=== PATIENT | male | born 1960 | race Hispanic/Latino ===

== ENCOUNTER 2021-12-16 22:54 | Inpatient (IN) | payer OTHER ==
[2021-12-16] MEDS ORDERED: ROCURONIUM 50 MG/5 ML INJ IV ONE (23:01)
[2021-12-16] MEDS ORDERED: MINERAL OIL/PETROLATUM, WHITE OPHTH OINT 3.5 GM OU PRN (23:01)
[2021-12-16] MEDS ORDERED: TETANUS,DIPH,PERTUSS(ACELL) VACCINE 0.5 ML SYRINGE IM ONE (23:01)
[2021-12-16] MEDS ORDERED: ETOMIDATE 20 MG/10 ML INJ IV ONE (23:01)
[2021-12-16] MEDS ORDERED: LIP THERAPY VASELINE TP PRN (23:01)
[2021-12-16] MEDS ORDERED: LACTATED RINGERS 1,000 ML IV ONE (23:05)
--- NOTE | 2021-12-16 23:07 | Emergency Department Report ---
ED General Adult HPI - General Chief complaint: Altered Mental Status Stated complaint: Respiratory failure Time Seen by Provider: 12/16/21 23:01 Source: EMS (Verbal report received from emergency medical services. EMS documentation not available at time of chart dictation ), RN notes reviewed Mode of arrival: Stretcher Limitations: Altered Mental Status, Physical Limitation - History of Present Illness Initial comments: The patient is a 61-year-old gentleman. The details of his past medical history are not known to myself previously. History is obtained entirely from EMS. Patient presents to the department today with EMS, receiving [id number] ventilation. His exact last known well time is not known. As per EMS, normal Accu-Chek, tachycardia, otherwise unremarkable vital signs. EMS reports that the patient was found on the floor, breathing spontaneously, by a family member. He apparently fell multiple times recently. It is unknown as to the nature of his fall. Upon arrival, the patient has a GCS of 3, and is receiving [id number] ventilation. EMS reports the patient is moving 4 extremities spontaneously in the field. Decision made to intubate the patient using rapid sequence induction techniques, which C-spine immobilization. Please note that EMS did not provide C-spine immobilization in the field. Upon arrival to the ER, patient receiving assisted ventilation, and upon my immediate primary survey evaluation, we initiate spinal precautions. He received 20 mg of etomidate, and 100 mg of rocuronium. Using a curved s4 video laryngoscopic blade, a 7.5 endotracheal tube is easily inserted into the trachea, with 1 attempt, while using C-spine immobilization precautions. A cervical collar was then immediately placed. Breath sounds are appreciated bilaterally. He is tachycardic. He has appropriate pulses in the upper and lower extremities. He has a left arm abrasion, and a lower extremity abrasion. The remainder of his primary and secondary survey are unremarkable. Patient not accompanied by friends or family at this time for collateral information or additional information. The patient himself is obviously not able to describe the qualitative nature of symptoms, exacerbating factors No additional history is available at this time -: unknown - Related Data Allergies Allergy/AdvReac Type Severity Reaction Status Date / Time No Known Allergies Allergy Verified 12/16/21 23:10 ED Review of Systems ROS: Stated complaint: CARDIAC ARREST Other details as noted in HPI Comment: Unobtainable due to pts medical conditions ED Past Medical Hx - Surgical History Additional Surgical History: back surgery - Social History Smoking Status: Never Smoker Substance Use Type: None ED Physical Exam - General Limitations: Altered Mental Status, Physical Limitation General appearance: obtunded - Head Head exam: Present: atraumatic, normocephalic - Eye Eye exam: Present: other (Pupils are pinpoint) - ENT ENT exam: Present: normal exam, normal orophraynx, mucous membranes moist, normal external ear exam - Neck Neck exam: Present: normal inspection. Absent: tenderness, meningismus - Respiratory Respiratory exam: Present: respiratory distress - Cardiovascular Cardiovascular Exam: Present: normal rhythm, tachycardia, normal heart sounds. Absent: bradycardia, irregular rhythm, systolic murmur, diastolic murmur, rubs, gallop - GI/Abdominal GI/Abdominal exam: Present: soft. Absent: distended, tenderness, guarding, rebound, rigid, pulsatile mass - Rectal Rectal exam: Present: normal inspection, normal rectal tone - exam: Present: normal inspection External exam: Present: normal external exam - Extremities Exam Extremities exam: Present: other (2+ pulses noted in the bilateral upper and lower extremities. There is no palpable cord. negative Homans sign. Muscular compartments are soft. The pelvis is stable.). Absent: normal inspection (Left arm abrasion), calf tenderness - Back Exam Back exam: Present: normal inspection. Absent: tenderness, CVA tenderness (R), CVA tenderness (L), paraspinal tenderness, vertebral tenderness - Neurological Exam Neurological exam: Present: altered, other (GCS of 3. Nonverbal) - Psychiatric Psychiatric exam: Present: other (Patient is nonverbal) - Skin Skin exam: Present: warm, abrasion ED Course Vital Signs 12/16/21 12/17/21 23:14 00:17 Temperature 94.1 F L Pulse Rate 104 H Respiratory 0 L Rate Blood Pressure 96/66 O2 Sat by Pulse 100 Oximetry - Reevaluation(s) Reevaluation #1: 12/16/21 23:33 Differential diagnosis, including but not limited to: Closed head injury, cervical spine injury, pneumonia, UTI, toxic encephalopathy, metabolic encephalopathy, hypercarbia Assessment and plan: 61-year-old gentleman, presenting with alteration in mental status and acute respiratory failure, requiring intubation and mechanical ventilation. He is intubated with cervical spine precautions and immobilization techniques. A code trauma is called overhead. Belly soft. Chest x-ray reviewed and appreciated. Obtain CT scan of the brain, and cervical spine. Continue ventilatory support, IV fluids, administer tetanus vaccination, and provide supportive care. Contacted critical care physician on-call, Dr. Neo Marcos Presuming no findings are identified that would require transfer to higher level of care, plan is to admit this patient to our ICU for ventilatory support, and supportive care. She agrees with the plan of care, and will follow in consultation. Reassess after initial diagnostics have resulted. EKG abnormal, but not consistent with a STEMI. The EKG is transmitted to our nurse midwife, Dr. Cali Sue, who agrees that the EKG does not meet STEMI criteria 12/16/21 23:34 12/17/21 01:03 Dr Cali Thakur to admit to ICU Family members at the bedside. Explained clinical impression to family members, including urine toxicology screen, and suspicion for possible substance abuse and possible drug overdose. Family members became quite agitated, and verbally combative/abusive. I explained the results of the urine toxicology screen. I then excused myself from the conversation in an attempt to de-escalate the situation 12/17/21 01:05 - Intubation Time Out Performed: No (Emergency situation) Sedative: Etomidate Mg Given: 20 Paralytic: Rocuronium Mg Given: 100 Laryngoscope: fiberoptic video scope Size: 4 Assist Device Used: fiberoptic device ET Tube Size: 7.5 Tube Secured Depth (cm): 23 Tube Secured Location: teeth Tube Placement Confirmation: visualized tube passing t, equal breath sounds bilat, no breath sounds over epi, confirmation by capnometr Patient Tolerated Procedure: well Intubation Complications: none Additional Comments: Patient placed on nasal cannula 15 L/min. Received simultaneous qld-[id number]-idwa ventilation. Preoxygenated to 99/100%. Video laryngoscopy is performed, with a curved S4 video living scope blade, and a 7.5 endotracheal tube is gently inserted into the oropharynx, after appropriate suctioning. The tube is placed through the trachea without difficulty, stylette is removed, ship's pilot balloon is inflated, and end-tidal capno graphy confirmatory device is attached to the endotracheal tube, and there is appropriate end-tidal capnography color change. Condensation is noted on the tube, and there are appropriate breath sounds appreciated bilaterally. The patient tolerated the procedure well, without obvious complication ED Medical Decision Making - Lab Data Result diagrams: 12/16/21 23:16 12/16/21 23:16 Vital Signs 12/16/21 12/17/21 23:14 00:17 Temperature 94.1 F L Pulse Rate 104 H Respiratory 0 L Rate Blood Pressure 96/66 O2 Sat by Pulse 100 Oximetry Lab Results 12/16/21 12/16/21 12/16/21 Range/Units 23:16 23:16 23:16 WBC 9.4 (4.5-11.0) K/mm3 RBC 4.62 (3.65-5.03) M/mm3 Hgb 13.8 (11.8-15.2) gm/dl Hct 42.0 (35.5-45.6) % MCV 91 (84-94) fl MCH 30 (28-32) pg MCHC 33 (32-34) % RDW 16.3 H (13.2-15.2) % Plt Count 290 (140-440) K/mm3 Lymph % (Auto) 5.7 L (13.4-35.0) % [place] % (Auto) 7.1 (0.0-7.3) % Eos % (Auto) 0.2 (0.0-4.3) % Baso % (Auto) 0.4 (0.0-1.8) % Lymph # (Auto) 0.5 L (1.2-5.4) K/mm3 [place] # (Auto) 0.7 (0.0-0.8) K/mm3 Eos # (Auto) 0.0 (0.0-0.4) K/mm3 Baso # (Auto) 0.0 (0.0-0.1) K/mm3 Seg Neutrophils % 86.6 H (40.0-70.0) % Seg Neutrophils # 8.2 H (1.8-7.7) K/mm3 PT 12.9 (12.2-14.9) Sec. INR 0.86 L (0.87-1.13) APTT 24.3 (24.2-36.6) Sec. Sodium 140 (137-145) mmol/L Potassium 5.4 H (3.6-5.0) mmol/L Chloride 97.2 L (98-107) mmol/L Carbon Dioxide 30 (22-30) mmol/L Anion Gap 18 mmol/L BUN 29 H (9-20) mg/dL Creatinine 1.6 H (0.8-1.3) mg/dL Estimated GFR 44 ml/min BUN/Creatinine Ratio 18 % Glucose 186 H (75-100) mg/dL Calcium 9.4 (8.4-10.2) mg/dL Magnesium (1.7-2.3) mg/dL Total Bilirubin 0.20 (0.1-1.2) mg/dL AST 31 (5-40) units/L ALT 37 (7-56) units/L Alkaline Phosphatase 77 (35-129) units/L Total Creatine Kinase 141 (55-170) units/L Troponin T 0.020 (0.00-0.029) ng/mL Total Protein 6.5 (6.3-8.2) g/dL Albumin 4.2 (3.9-5) g/dL Albumin/Globulin Ratio 1.8 % TSH (0.270-4.200) mlU/mL Urine Color (Yellow) Urine Turbidity (Clear) Urine pH (5.0-7.0) Ur Specific [place] (1.003-1.030) Urine Protein (Negative) mg/dL Urine Glucose (UA) (Negative) mg/dL Urine Ketones (Negative) mg/dL Urine Blood (Negative) Urine Nitrite (Negative) Urine Bilirubin (Negative) Urine Urobilinogen (<2.0) mg/dL Ur Leukocyte Esterase (Negative) Urine WBC (Auto) (0.0-6.0) /HPF Urine RBC (Auto) (0.0-6.0) /HPF Hyaline Casts /LPF Granular Casts /LPF Urine Mucus /HPF Urine Sperm (DELIVERY TABLE FEEDER) /HPF Salicylates (2.8-20.0) mg/dL Urine Opiates Screen Urine Methadone Screen Acetaminophen (10.0-30.0) ug/mL Ur Barbiturates Screen Ur Phencyclidine Scrn Ur Amphetamines Screen U Benzodiazepines Scrn Urine Cocaine Screen U Marijuana (THC) Screen Plasma/Serum Alcohol (0-0.07) % 12/16/21 12/16/21 12/16/21 Range/Units 23:16 23:16 23:16 WBC (4.5-11.0) K/mm3 RBC (3.65-5.03) M/mm3 Hgb (11.8-15.2) gm/dl Hct (35.5-45.6) % MCV (84-94) fl MCH (28-32) pg MCHC (32-34) % RDW (13.2-15.2) % Plt Count (140-440) K/mm3 Lymph % (Auto) (13.4-35.0) % [place] % (Auto) (0.0-7.3) % Eos % (Auto) (0.0-4.3) % Baso % (Auto) (0.0-1.8) % Lymph # (Auto) (1.2-5.4) K/mm3 [place] # (Auto) (0.0-0.8) K/mm3 Eos # (Auto) (0.0-0.4) K/mm3 Baso # (Auto) (0.0-0.1) K/mm3 Seg Neutrophils % (40.0-70.0) % Seg Neutrophils # (1.8-7.7) K/mm3 PT (12.2-14.9) Sec. INR (0.87-1.13) APTT (24.2-36.6) Sec. Sodium (137-145) mmol/L Potassium (3.6-5.0) mmol/L Chloride (98-107) mmol/L Carbon Dioxide (22-30) mmol/L Anion Gap mmol/L BUN (9-20) mg/dL Creatinine (0.8-1.3) mg/dL Estimated GFR ml/min BUN/Creatinine Ratio % Glucose (75-100) mg/dL Calcium (8.4-10.2) mg/dL Magnesium 2.30 (1.7-2.3) mg/dL Total Bilirubin (0.1-1.2) mg/dL AST (5-40) units/L ALT (7-56) units/L Alkaline Phosphatase (35-129) units/L Total Creatine Kinase (55-170) units/L Troponin T (0.00-0.029) ng/mL Total Protein (6.3-8.2) g/dL Albumin (3.9-5) g/dL Albumin/Globulin Ratio % TSH 4.480 H (0.270-4.200) mlU/mL Urine Color (Yellow) Urine Turbidity (Clear) Urine pH (5.0-7.0) Ur Specific [place] (1.003-1.030) Urine Protein (Negative) mg/dL Urine Glucose (UA) (Negative) mg/dL Urine Ketones (Negative) mg/dL Urine Blood (Negative) Urine Nitrite (Negative) Urine Bilirubin (Negative) Urine Urobilinogen (<2.0) mg/dL Ur Leukocyte Esterase (Negative) Urine WBC (Auto) (0.0-6.0) /HPF Urine RBC (Auto) (0.0-6.0) /HPF Hyaline Casts /LPF Granular Casts /LPF Urine Mucus /HPF Urine Sperm (DELIVERY TABLE FEEDER) /HPF Salicylates (2.8-20.0) mg/dL Urine Opiates Screen Urine Methadone Screen Acetaminophen (10.0-30.0) ug/mL Ur Barbiturates Screen Ur Phencyclidine Scrn Ur Amphetamines Screen U Benzodiazepines Scrn Urine Cocaine Screen U Marijuana (THC) Screen Plasma/Serum Alcohol < 0.01 (0-0.07) % 12/16/21 12/16/21 12/16/21 Range/Units 23:16 23:16 23:29 WBC (4.5-11.0) K/mm3 RBC (3.65-5.03) M/mm3 Hgb (11.8-15.2) gm/dl Hct (35.5-45.6) % MCV (84-94) fl MCH (28-32) pg MCHC (32-34) % RDW (13.2-15.2) % Plt Count (140-440) K/mm3 Lymph % (Auto) (13.4-35.0) % [place] % (Auto) (0.0-7.3) % Eos % (Auto) (0.0-4.3) % Baso % (Auto) (0.0-1.8) % Lymph # (Auto) (1.2-5.4) K/mm3 [place] # (Auto) (0.0-0.8) K/mm3 Eos # (Auto) (0.0-0.4) K/mm3 Baso # (Auto) (0.0-0.1) K/mm3 Seg Neutrophils % (40.0-70.0) % Seg Neutrophils # (1.8-7.7) K/mm3 PT (12.2-14.9) Sec. INR (0.87-1.13) APTT (24.2-36.6) Sec. Sodium (137-145) mmol/L Potassium (3.6-5.0) mmol/L Chloride (98-107) mmol/L Carbon Dioxide (22-30) mmol/L Anion Gap mmol/L BUN (9-20) mg/dL Creatinine (0.8-1.3) mg/dL Estimated GFR ml/min BUN/Creatinine Ratio % Glucose (75-100) mg/dL Calcium (8.4-10.2) mg/dL Magnesium (1.7-2.3) mg/dL Total Bilirubin (0.1-1.2) mg/dL AST (5-40) units/L ALT (7-56) units/L Alkaline Phosphatase (35-129) units/L Total Creatine Kinase (55-170) units/L Troponin T (0.00-0.029) ng/mL Total Protein (6.3-8.2) g/dL Albumin (3.9-5) g/dL Albumin/Globulin Ratio % TSH (0.270-4.200) mlU/mL Urine Color Yellow (Yellow) Urine Turbidity Slightly-cloudy (Clear) Urine pH 5.0 (5.0-7.0) Ur Specific [place] 1.018 (1.003-1.030) Urine Protein 100 mg/dl (Negative) mg/dL Urine Glucose (UA) Neg (Negative) mg/dL Urine Ketones Neg (Negative) mg/dL Urine Blood Neg (Negative) Urine Nitrite Neg (Negative) Urine Bilirubin Neg (Negative) Urine Urobilinogen < 2 (<2.0) mg/dL Ur Leukocyte Esterase Neg (Negative) Urine WBC (Auto) 4.0 (0.0-6.0) /HPF Urine RBC (Auto) 2.0 (0.0-6.0) /HPF Hyaline Casts 67 /LPF Granular Casts 9 /LPF Urine Mucus 1+ /HPF Urine Sperm 1+ (DELIVERY TABLE FEEDER) /HPF Salicylates < 0.3 L (2.8-20.0) mg/dL Urine Opiates Screen Urine Methadone Screen Acetaminophen 5.0 L (10.0-30.0) ug/mL Ur Barbiturates Screen Ur Phencyclidine Scrn Ur Amphetamines Screen U Benzodiazepines Scrn Urine Cocaine Screen U Marijuana (THC) Screen Plasma/Serum Alcohol (0-0.07) % 12/16/21 Range/Units 23:29 WBC (4.5-11.0) K/mm3 RBC (3.65-5.03) M/mm3 Hgb (11.8-15.2) gm/dl Hct (35.5-45.6) % MCV (84-94) fl MCH (28-32) pg MCHC (32-34) % RDW (13.2-15.2) % Plt Count (140-440) K/mm3 Lymph % (Auto) (13.4-35.0) % [place] % (Auto) (0.0-7.3) % Eos % (Auto) (0.0-4.3) % Baso % (Auto) (0.0-1.8) % Lymph # (Auto) (1.2-5.4) K/mm3 [place] # (Auto) (0.0-0.8) K/mm3 Eos # (Auto) (0.0-0.4) K/mm3 Baso # (Auto) (0.0-0.1) K/mm3 Seg Neutrophils % (40.0-70.0) % Seg Neutrophils # (1.8-7.7) K/mm3 PT (12.2-14.9) Sec. INR (0.87-1.13) APTT (24.2-36.6) Sec. Sodium (137-145) mmol/L Potassium (3.6-5.0) mmol/L Chloride (98-107) mmol/L Carbon Dioxide (22-30) mmol/L Anion Gap mmol/L BUN (9-20) mg/dL Creatinine (0.8-1.3) mg/dL Estimated GFR ml/min BUN/Creatinine Ratio % Glucose (75-100) mg/dL Calcium (8.4-10.2) mg/dL Magnesium (1.7-2.3) mg/dL Total Bilirubin (0.1-1.2) mg/dL AST (5-40) units/L ALT (7-56) units/L Alkaline Phosphatase (35-129) units/L Total Creatine Kinase (55-170) units/L Troponin T (0.00-0.029) ng/mL Total Protein (6.3-8.2) g/dL Albumin (3.9-5) g/dL Albumin/Globulin Ratio % TSH (0.270-4.200) mlU/mL Urine Color (Yellow) Urine Turbidity (Clear) Urine pH (5.0-7.0) Ur Specific [place] (1.003-1.030) Urine Protein (Negative) mg/dL Urine Glucose (UA) (Negative) mg/dL Urine Ketones (Negative) mg/dL Urine Blood (Negative) Urine Nitrite (Negative) Urine Bilirubin (Negative) Urine Urobilinogen (<2.0) mg/dL Ur Leukocyte Esterase (Negative) Urine WBC (Auto) (0.0-6.0) /HPF Urine RBC (Auto) (0.0-6.0) /HPF Hyaline Casts /LPF Granular Casts /LPF Urine Mucus /HPF Urine Sperm (DELIVERY TABLE FEEDER) /HPF Salicylates (2.8-20.0) mg/dL Urine Opiates Screen Presumptive negative Urine Methadone Screen Presumptive negative Acetaminophen (10.0-30.0) ug/mL Ur Barbiturates Screen Presumptive negative Ur Phencyclidine Scrn Presumptive negative Ur Amphetamines Screen Presumptive positive U Benzodiazepines Scrn Presumptive positive Urine Cocaine Screen Presumptive negative U Marijuana (THC) Screen Presumptive negative Plasma/Serum Alcohol (0-0.07) % - EKG Data -: EKG Interpreted by Hi Rate: tachycardia - EKG Data 12/16/21 23:32 The EKG is interpreted at 23: 14. Sinus rhythm, tachycardia, rate 108 bpm. Borderline leftward axis deviation, normal P wave axis, right bundle branch block, left ventricular hypertrophy. QTC is 4 8 7 ms. This is an abnormal EKG. This is not a STEMI. This EKG is also transmitted to our nurse midwife, Dr. Cali Sue, who agrees and further advises that this EKG does not meet STEMI criteria - Radiology Data Radiology results: pending, report reviewed, image reviewed CHEST 1 VIEW 12/16/2021 11:09 PM INDICATION / CLINICAL INFORMATION: ETT placement. COMPARISON: 09/14/2013 FINDINGS: SUPPORT DEVICES: Satisfactory endotracheal tube position just above the itz. HEART / MEDIASTINUM: No signi ficant abnormality. LUNGS / PLEURA: Left basilar consolidation with mild volume loss representing either pneumonia or atelectasis. No significant pleural effusion. No pneumothorax. ADDITIONAL FINDINGS: None IMPRESSION: 1. Satisfactory endotracheal tube position. 2. Left basilar consolidation repre senting either pneumonia or atelectasis. Signer Name: Pascual Rees MD Signed: 12/16/2021 10:38 PM Workstation Name: [employer] PELVIS 2 VIEW(S) INDICATION / CLINICAL INFORMATION: Trauma COMPARISON: None available. FINDINGS: BONES / JOINT(S): No acute fracture or subluxation. No significant arthritis. SOFT TISSUES: No significant abnormality. ADDITIONAL FINDINGS: None. IMPRESSION: 1. No acute findings. Signer Name: Pascual Rees MD Signed: 12/16/2021 10:37 PM Workstation Name: [facility] CT CERVICAL SPINE WITHOUT CONTRAST INDICATION / CLINICAL INFORMATION: Trauma. TECHNIQUE: Axial CT images were obtained through the cervical spine. Sagittal and coronal reformatted images were produced. All CT scans at this location are performed using CT dose reduction for ALARA by means of automated exposure control. COMPARISON: None available. FINDINGS: VERTEBRAE/ALIGNMENT: Normal vertebral body height and alignment without acute fracture or posttraumatic subluxation. CRANIOCERVICAL JUNCTION:No significant abnormality. DISC SPACES/FACETS: Mild multilevel cervical degenerative spondylosis. This most notably involves the C6-C7 level with disc height loss and lower cervical marginal osteophytes. Multilevel moderate/severe left greater than right hypertrophic facet arthropathy. SPINAL CANAL: No evidence for significant spinal stenosis within limitations of noncontrast CT technique. PARASPINAL SOFT TISSUES: No significant abnormality. LUNG APICES/ADDITIONAL FINDINGS: Satisfacto ry endotracheal tube position. Mild emphysema. Chronic healed right posterior first rib fracture. IMPRESSION: 1. No fracture or other acute process. 2. Multilevel moderate/severe hypertrophic facet arthropathy and otherwise mild cervical degenerative spondylosis. Signer Name: Pascual Rees MD Signed: 12/16/2021 11:34 PM Workstation Name: [employer] CT HEAD WITHOUT CONTRAST INDICATION / CLINICAL INFORMATION: Trauma. TECHNIQUE: All CT scans at this location are performed using CT dose reduction for ALARA by means of automated exposure control. COMPARISON: None available. FINDINGS: CEREBRAL/CEREBELLAR PARENCHYMA: The cerebral and cerebellar hemispheres are normal for age. No CT evidence for an acute or subacute territorial infarct. HEMORRHAGE: No acute intra-axial hemorrhage or extra-axial fluid collection. MASS: No mass or mass effect. VENTRICULAR SYSTEM: Normal in size and morphology for the patient's age. ORBITS: No acute process. SOFT TISSUES/SKULL: No scalp hematoma or skull fracture. PARANASAL SINUSES/MASTOID AIR CELLS: Normal as visualized. IMPRESSION: 1. No acute intracranial process. Signer Name: Pascual Rees MD Signed: 12/16/2021 11:31 PM Workstation Name: [facility] Critical Care Time: Yes Critical care time in (mins) excluding proc time.: 45 Critical care attestation.: If time is entered above; I have spent that time in minutes in the direct care of this critically ill patient, excluding procedure time. ED Disposition Clinical Impression: Acute respiratory failure, Acute encephalopathy, Hypothermia, Dehydration Disposition: ADMITTED INPATIENT Is pt being admited?: Yes Does the pt Need Aspirin: No Condition: Critical
[2021-12-16] MEDS ORDERED: SODIUM CHLORIDE 0.9% 1000 ML 1,000 ML IV ONE (23:20)
[2021-12-16 23:37] LABS: Bilirubin,Urine NEG (Negative); Blood,Urine NEG (Negative); Color,Urine Yellow (Yellow); Urobilinogen,Urine < 2 mg/dL (<2.0)
[2021-12-16 23:39] LABS: Basophils % (Auto) 0.4 % (0.0-1.8); Eosinophils % (Auto) 0.2 % (0.0-4.3); Hemoglobin 13.8 gm/dl (11.8-15.2); Lymphocytes # (Auto) 0.5 K/mm3 (1.2-5.4); Lymphocytes % (Auto) 5.7 % (13.4-35.0); Mean Corpuscular HGB Conc 33 % (32-34); Mean Corpuscular Volume 91 fl (84-94); Monocytes # (Auto) 0.7 K/mm3 (0.0-0.8); Monocytes % (Auto) 7.1 % (0.0-7.3); Platelet Count 290 K/mm3 (140-440); Red Blood Count 4.62 M/mm3 (3.65-5.03); Red Cell Distribution Width 16.3 % (13.2-15.2)
--- NOTE | 2021-12-16 23:41 | XRay Report ---
PELVIS 2 VIEW(S) INDICATION / CLINICAL INFORMATION: Trauma COMPARISON: None available. FINDINGS: BONES / JOINT(S): No acute fracture or subluxation. No significant arthritis. SOFT TISSUES: No significant abnormality. ADDITIONAL FINDINGS: None. IMPRESSION: 1. No acute findings. Signer Name: Pascual Rees MD Signed: 12/16/2021 11:37 PM Workstation Name: [email or web address]
--- NOTE | 2021-12-16 23:43 | XRay Report ---
CHEST 1 VIEW 12/16/2021 11:09 PM INDICATION / CLINICAL INFORMATION: ETT placement. COMPARISON: 09/14/2013 FINDINGS: SUPPORT DEVICES: Satisfactory endotracheal tube position just above the itz. HEART / MEDIASTINUM: No significant abnormality. LUNGS / PLEURA: Left basilar consolidation with mild volume loss representing either pneumonia or ate lectasis. No significant pleural effusion. No pneumothorax. ADDITIONAL FINDINGS: None IMPRESSION: 1. Satisfactory endotracheal tube position. 2. Left basilar consolidation representing either pneumonia or atelectasis. Signer Name: Pascual Rees MD Signed: 12/16/2021 11:38 PM Workstation Name: [email or web address]
[2021-12-16 23:46] LABS: Amphetamine Screen,Urine PRESUMPTIVE POSITIVE; Benzodiazepines Screen,Urine PRESUMPTIVE POSITIVE; Cannabinoid Screen,Urine PRESUMPTIVE NEGATIVE; Cocaine Screen,Urine PRESUMPTIVE NEGATIVE; Granular Casts,Urine 9 /LPF; Hyaline Casts,Urine 67 /LPF; Methadone Screen,Urine PRESUMPTIVE NEGATIVE; Mucus,Urine 1+ /HPF; Opiate Screen,Urine PRESUMPTIVE NEGATIVE; Sperm,Urine 1+ /HPF (NP)
[2021-12-16] MEDS ORDERED: cefTRIAXone/NS 1 GM/50 ML 1 GM/50 ML BAG IV ONE (23:51)
[2021-12-16] MEDS ORDERED: AZITHROMYCIN/NS 500 MG/250 ML 500 MG/250 ML BAG IV ONE (23:51)
[2021-12-16 23:53] LABS: INR 0.86 (0.87-1.13)
[2021-12-16 23:54] LABS: Partial Thromboplastin Time 24.3 Sec. (24.2-36.6)
[2021-12-16 23:55] LABS: Albumin 4.2 g/dL (3.9-5); Calcium 9.4 mg/dL (8.4-10.2)
[2021-12-17] MEDS ORDERED: SODIUM CHLORIDE 0.9% 1000 ML 2,000 ML IV ONE (00:17)
[2021-12-17] MEDS: fentaNYL DRIP Premix 1,000 MCG/100 ML BAG IV SCH ×6 (00:30→22:04)
--- NOTE | 2021-12-17 00:35 | Cat Scan Report ---
CT HEAD WITHOUT CONTRAST INDICATION / CLINICAL INFORMATION: Trauma. TECHNIQUE: All CT scans at this location are performed using CT dose reduction for [place] by means of automated exposure control. COMPARISON: None available. FINDINGS: CEREBRAL/CEREBELLAR PARENCHYMA: The cerebral and cerebellar hemispheres are normal for age. No CT billy dence for an acute or subacute territorial infarct. HEMORRHAGE: No acute intra-axial hemorrhage or extra-axial fluid collection. MASS: No mass or mass effect. VENTRICULAR SYSTEM: Normal in size and morphology for the patient's age. ORBITS: No acute process. SOFT TISSUES/SKULL: No scalp hematoma or skull fracture. PARANASAL SINUSES/MASTOID AIR CELLS: Normal as visualized. IMPRESSION: 1. No acute intracranial process. Signer Name: Pascual Rees MD Signed: 12/17/2021 12:31 AM Workstation Name: [email or web address]
--- NOTE | 2021-12-17 00:38 | Cat Scan Report ---
CT CERVICAL SPINE WITHOUT CONTRAST INDICATION / CLINICAL INFORMATION: Trauma. TECHNIQUE: Axial CT images were obtained through the cervical spine. Sagittal and coronal reformatted images were produced. All CT scans at this location are performed using CT dose reduction for [place] by means of automated exposure control. COMPARISON: None available. FINDINGS: VERTEBRAE/ALIGNMENT: Normal vertebral body height and alignment without acute fracture or posttraumat ic subluxation. CRANIOCERVICAL JUNCTION:No significant abnormality. DISC SPACES/FACETS: Mild multilevel cervical degenerative spondylosis. This most notably involves the C6-C7 level with disc height loss and lower cervical marginal osteophytes. Multilevel moderate/sever e left greater than right hypertrophic facet arthropathy. SPINAL CANAL: No evidence for significant spinal stenosis within limitations of noncontrast CT techni que. PARASPINAL SOFT TISSUES: No significant abnormality. LUNG APICES/ADDITIONAL FINDINGS: Satisfactory endotracheal tube position. Mild emphysema. Chronic hea led right posterior first rib fracture. IMPRESSION: 1. No fracture or other acute process. 2. Multilevel moderate/severe hypertrophic facet arthropathy and otherwise mild cervical degenerative spondylosis. Signer Name: Pascual Rees MD Signed: 12/17/2021 12:34 AM Workstation Name: [employer]
[2021-12-17] MEDS: MIDAZOLAM IV SCH ×2 (00:55→04:23)
[2021-12-17] MEDS: [UNRECOGNIZED DRUG - OTHER] IV SCH ×2 (00:55→04:23)
[2021-12-17] MEDS ORDERED: NALOXONE 0.4 MG/1 ML INJ IV PRN (01:03)
[2021-12-17] MEDS ORDERED: ACETAMINOPHEN 325 MG TAB PO PRN (01:17)
[2021-12-17 01:31] LABS: ABG Base Excess 2.8 mmol/L (-2.0-3.0); ABG HCO3 29.8 mmol/L (20.0-26.0); ABG Methemoglobin 0.5 % (0.0-1.5); ABG Oxygen Saturation 99.2 % (95.0-99.0); ABG PCO2 57.6 mm Hg; ABG PH 7.332 pH Units (7.350-7.450); ABG PO2 195.4 mm Hg (80.0-90.0)
[2021-12-17] MEDS ORDERED: cefTRIAXone/NS 1 GM/50 ML 1 GM/50 ML BAG IV ONE (02:45)
[2021-12-17] MEDS ORDERED: ACETAMINOPHEN 650 MG RECT SUPP PR PRN (02:56)
[2021-12-17] MEDS ORDERED: MORPHINE 4 MG/1 ML INJ IV PRN (02:56)
[2021-12-17] MEDS ORDERED: MORPHINE 2 MG/1 ML INJ IV PRN (02:56)
--- NOTE | 2021-12-17 03:11 | History and Physical Report ---
History of Present Illness Date of examination: 12/17/21 Date of admission: 12/17/21 01:17 Chief complaint: Altered mental status History of present illness: 61-year-old male brought into the emergency room via EMS for evaluation after being found on the floor by family members at home. Was said to have had multiple falls lately. He was brought into the emergency room receiving bag valve mask ventilation. He was subsequently intubated in the emergency room. More history was provided by who was by the bedside. She indicates that she found patient on the floor unresponsive. Work-up in the emergency room, labs shows kalemia 5.4. BUN of 29 creatinine of 1.6 UDS was significant for amphetamine and benzodiazepine. Chest x-ray shows left basilar consolidation representing either pneumonia or actually. Pelvic x-ray, cervical spine x-ray head showed no acute findings. Patient being admitted with acute respiratory failure, acute encephalopathy and dehydration. Medications and Allergies Allergies Allergy/AdvReac Type Severity Reaction Status Date / Time No Known Allergies Allergy Verified 12/16/21 23:10 Active Meds: Active Medications Acetaminophen (Acetaminophen 325 Mg Tab) 650 mg PO Q6H PRN PRN Reason: Pain MILD(1-3)/Fever >100.5/KRUEGER Acetaminophen (Acetaminophen 650 Mg Rect Supp) 650 mg ID Q6H PRN PRN Reason: Pain MILD(1-3)/Fever >100.5/KRUEGER Famotidine (Famotidine 20 Mg/2 Ml Inj) 20 mg IV BID SHILA Hydrophilic Ointment (Lip Therapy Vaseline) 1 applic TP Q2HR PRN PRN Reason: Dry Lips Fentanyl Citrate (Fentanyl Drip Premix) 1,000 mcg in 100 mls @ 2.5 mls/hr IV TITR SHILA; Protocol Midazolam HCl (Midazolam/Ns Drip 50mg/50ml) 50 mg in 50 mls @ 1 mls/hr IV TITR SHILA; Protocol Ceftriaxone Sodium (Rocephin/Ns 1 Gm/50 Ml) 1 gm in 50 mls @ 100 mls/hr IV ONCE ONE; Protocol Stop: 12/17/21 03:14 Sodium Chloride (Nacl 0.9% 1000 Ml) 1,000 mls @ 125 mls/hr IV DIRECT SHILA Ceftriaxone Sodium (Rocephin/Ns 2 Gm/100 Ml) 2 gm in 100 mls @ 200 mls/hr IV Q24H SHILA; Protocol Azithromycin (Zithromax/Ns) 500 mg in 250 mls @ 250 mls/hr IV Q24H SHILA; Protocol Morphine Sulfate (Morphine 2 Mg/1 Ml Inj) 2 mg IV Q4H PRN PRN Reason: Pain, Moderate (4-6) Morphine Sulfate (Morphine 4 Mg/1 Ml Inj) 4 mg IV Q4H PRN PRN Reason: Pain , Severe (7-10) Multi-Ingred Cream/Lotion/Oil/Oint (Mineral Oil/Petrolatum, White Ophth Oint 3.5 Gm) 1 applic OU Q4HR PRN PRN Reason: Dry Eye(s) Naloxone HCl (Naloxone 0.4 Mg/1 Ml Inj) 0.1 mg IV Q2MIN PRN PRN Reason: Res Rate </= 8 or 02 SAT < 92% Senna/Docusate Sodium (Sennosides/Docusate Sodium 8.6/50 Mg Tab) 1 tab FEEDTUBE BID SHILA Sodium Chloride (Sodium Chloride 0.9% 10 Ml Flush Syringe) 10 ml IV BID SHILA Sodium Chloride (Sodium Chloride 0.9% 10 Ml Flush Syringe) 10 ml IV PRN PRN PRN Reason: LINE FLUSH Sodium Chloride (Sodium Chloride 0.9% 10 Ml Flush Syringe) 10 ml IV BID SHILA Sodium Chloride (Sodium Chloride 0.9% 10 Ml Flush Syringe) 10 ml IV PRN PRN PRN Reason: LINE FLUSH Exam - Constitutional Vitals: Temp Pulse Resp BP Pulse Ox 94.1 F L 104 H 0 L 96/66 100 12/17/21 00:17 12/16/21 23:14 12/16/21 23:14 12/16/21 23:14 12/16/21 23:14 HEART Score - HEART Score Troponin: Troponin T 0.020 ng/mL (0.00-0.029) 12/16/21 23:16 Results - Labs CBC & Chem 7: 12/16/21 23:16 12/16/21 23:16 Labs: Abnormal lab results 12/16/21 12/16/21 12/16/21 Range/Units 23:16 23:16 23:16 RDW 16.3 H (13.2-15.2) % Lymph % (Auto) 5.7 L (13.4-35.0) % Lymph # (Auto) 0.5 L (1.2-5.4) K/mm3 Seg Neutrophils % 86.6 H (40.0-70.0) % Seg Neutrophils # 8.2 H (1.8-7.7) K/mm3 INR 0.86 L (0.87-1.13) ABG pH (7.350-7.450) pH Units ABG pO2 (80.0-90.0) mm Hg ABG HCO3 (20.0-26.0) mmol/L ABG O2 Saturation (95.0-99.0) % ABG Hemoglobin (14.0-18.0) gm/dl Potassium 5.4 H (3.6-5.0) mmol/L Chloride 97.2 L (98-107) mmol/L BUN 29 H (9-20) mg/dL Creatinine 1.6 H (0.8-1.3) mg/dL Glucose 186 H (75-100) mg/dL TSH (0.270-4.200) mlU/mL Salicylates (2.8-20.0) mg/dL Acetaminophen (10.0-30.0) ug/mL 12/16/21 12/16/21 12/16/21 Range/Units 23:16 23:16 23:16 RDW (13.2-15.2) % Lymph % (Auto) (13.4-35.0) % Lymph # (Auto) (1.2-5.4) K/mm3 Seg Neutrophils % (40.0-70.0) % Seg Neutrophils # (1.8-7.7) K/mm3 INR (0.87-1.13) ABG pH (7.350-7.450) pH Units ABG pO2 (80.0-90.0) mm Hg ABG HCO3 (20.0-26.0) mmol/L ABG O2 Saturation (95.0-99.0) % ABG Hemoglobin (14.0-18.0) gm/dl Potassium (3.6-5.0) mmol/L Chloride (98-107) mmol/L BUN (9-20) mg/dL Creatinine (0.8-1.3) mg/dL Glucose (75-100) mg/dL TSH 4.480 H (0.270-4.200) mlU/mL Salicylates < 0.3 L (2.8-20.0) mg/dL Acetaminophen 5.0 L (10.0-30.0) ug/mL 12/17/21 Range/Units 01:25 RDW (13.2-15.2) % Lymph % (Auto) (13.4-35.0) % Lymph # (Auto) (1.2-5.4) K/mm3 Seg Neutrophils % (40.0-70.0) % Seg Neutrophils # (1.8-7.7) K/mm3 INR (0.87-1.13) ABG pH 7.332 L (7.350-7.450) pH Units ABG pO2 195.4 H (80.0-90.0) mm Hg ABG HCO3 29.8 H (20.0-26.0) mmol/L ABG O2 Saturation 99.2 H (95.0-99.0) % ABG Hemoglobin 11.6 L (14.0-18.0) gm/dl Potassium (3.6-5.0) mmol/L Chloride (98-107) mmol/L BUN (9-20) mg/dL Creatinine (0.8-1.3) mg/dL Glucose (75-100) mg/dL TSH (0.270-4.200) mlU/mL Salicylates (2.8-20.0) mg/dL Acetaminophen (10.0-30.0) ug/mL Assessment and Plan Assessment: 1. Acute respiratory failurepossibly secondary to pneumonia 2. Acute encephalopathy 3. Dehydration 4. Hyperkalemia Plan: 1. Patient admitted and placed on empiric IV antibiotics. 2. We will await further evaluation and recommendations wheel buffer. 3. Patient placed on IV fluid. We will monitor chemistry. DVT prophylaxis: Subcutaneous heparin CODE STATUS: Full code
[2021-12-17] MEDS: SODIUM CHLORIDE 0.9% 1000 ML 1,000 ML IV SCH ×2 (06:00→17:04)
[2021-12-17] MEDS: HEPARIN 5,000 UNIT/1 ML VIAL SUB-Q SCH ×2 (09:11→21:50)
[2021-12-17] MEDS: FAMOTIDINE 20 MG/2 ML INJ IV SCH ×2 (09:11→21:50)
--- NOTE | 2021-12-17 09:34 | Consultation ---
History of Present Illness Consult date: 12/17/21 Requesting physician: MARILU WEN History of present illness: 61-year-old male brought into the emergency room via EMS for evaluation after being found on the floor by family members at home. Was said to have had multiple falls lately.He was brought into the emergency room receiving bag valve mask ventilation. He was subsequently intubated in the emergency room. More history was provided by who was by the bedside. She indicates that she found patient on the floor unresponsive. Work-up in the emergency room, labs shows kalemia 5.4. BUN of 29 creatinine of 1.6 UDS was significant for amphetamine and benzodiazepine. Chest x-ray shows left basilar consolidation representing either pneumonia Pelvic x-ray, cervical spine x-ray head showed no acute findings. Patient being admitted with acute respiratory failure, acute encephalopathy and dehydration. Critical care consult placed. Patient seen and examined. Orally intubated, on Midazolam and Fentanyl infusion, Warren in place. Medications and Allergies Allergies Allergy/AdvReac Type Severity Reaction Status Date / Time No Known Allergies Allergy Verified 12/16/21 23:10 Active Meds: Active Medications Acetaminophen (Acetaminophen 650 Mg Rect Supp) 650 mg CO Q6H PRN PRN Reason: Pain MILD(1-3)/Fever >100.5/KRUEGER Famotidine (Famotidine 20 Mg/2 Ml Inj) 20 mg IV BID SHILA Last Admin: 12/17/21 09:11 Dose: 20 mg Heparin Sodium (Porcine) (Heparin 5,000 Unit/1 Ml Vial) 5,000 unit SUB-Q Q12HR SHILA Last Admin: 12/17/21 09:11 Dose: 5,000 unit Hydrophilic Ointment (Lip Therapy Vaseline) 1 applic TP Q2HR PRN PRN Reason: Dry Lips Fentanyl Citrate (Fentanyl Drip Premix) 1,000 mcg in 100 mls @ 2.5 mls/hr IV TITR SHILA; Protocol Last Admin: 12/17/21 09:10 Dose: 150 mcg/hr, 15 mls/hr Midazolam HCl (Midazolam/Ns Drip 50mg/50ml) 50 mg in 50 mls @ 1 mls/hr IV TITR SHILA; Protocol Last Titration: 12/17/21 08:16 Dose: 0 mg/hr, 0 mls/hr Sodium Chloride (Nacl 0.9% 1000 Ml) 1,000 mls @ 125 mls/hr IV DIRECT SHILA Last Admin: 12/17/21 06:00 Dose: 125 mls/hr Ceftriaxone Sodium (Rocephin/Ns 2 Gm/100 Ml) 2 gm in 100 mls @ 200 mls/hr IV Q24H SHILA; Protocol Azithromycin (Zithromax/Ns) 500 mg in 250 mls @ 250 mls/hr IV Q24H SHILA; Protocol Multi-Ingred Cream/Lotion/Oil/Oint (Mineral Oil/Petrolatum, White Ophth Oint 3.5 Gm) 1 applic OU Q4HR PRN PRN Reason: Dry Eye(s) Naloxone HCl (Naloxone 0.4 Mg/1 Ml Inj) 0.1 mg IV Q2MIN PRN PRN Reason: Res Rate </= 8 or 02 SAT < 92% Senna/Docusate Sodium (Sennosides/Docusate Sodium 8.6/50 Mg Tab) 1 tab FEEDTUBE BID SHILA Sodium Chloride (Sodium Chloride 0.9% 10 Ml Flush Syringe) 10 ml IV BID [facility] Last Admin: 12/17/21 09:13 Dose: 10 ml Sodium Chloride (Sodium Chloride 0.9% 10 Ml Flush Syringe) 10 ml IV PRN PRN PRN Reason: LINE FLUSH Review of Systems ROS unobtainable: due to endotracheal tube, due to mental status Physical Examination Vital signs: Vital Signs Pulse Resp BP Pulse Ox 104 H 0 L 96/66 100 12/16/21 23:14 12/16/21 23:14 12/16/21 23:14 12/16/21 23:14 General appearance: Present: other (Intubated and Sedated) No ppatient-ventilator dys-synchrony - EENT Eyes: Present: PERRL - Respiratory Respiratory effort: normal Respiratory: bilateral: CTA - Cardiovascular Rhythm: regular Heart Sounds: Present: S1 & S2 - Extremities Extremities: no ischemia, pulses intact, pulses symmetrical Peripheral Pulses: within normal limits - Abdominal General gastrointestinal: soft, non-distended, normal bowel sounds - Integumentary Integumentary: Present: warm, dry - Psychiatric Psychiatric: other (Intubated and Sedated) - Neurologic Neurologic: moves all extremities (Nonpurposeful), other (Intubated and Sedated) Results - Laboratory Findings CBC and BMP: 12/16/21 23:16 12/17/21 08:20 ABG ABG pH 7.332 pH Units (7.350-7.450) L 12/17/21 01:25 ABG pCO2 57.6 mm Hg 12/17/21 01:25 ABG pO2 195.4 mm Hg (80.0-90.0) H 12/17/21 01:25 ABG O2 Saturation 99.2 % (95.0-99.0) H 12/17/21 01:25 PT/INR, D-dimer PT 12.9 Sec. (12.2-14.9) 12/16/21 23:16 INR 0.86 (0.87-1.13) L 12/16/21 23:16 Abnormal lab findings: Abnormal Labs 12/16/21 12/16/21 12/16/21 23:16 23:16 23:16 RDW 16.3 H Lymph % (Auto) 5.7 L Lymph # (Auto) 0.5 L Seg Neutrophils % 86.6 H Seg Neutrophils # 8.2 H INR 0.86 L ABG pH ABG pO2 ABG HCO3 ABG O2 Saturation ABG Hemoglobin Potassium 5.4 H Chloride 97.2 L BUN 29 H Creatinine 1.6 H Glucose 186 H TSH Salicylates Acetaminophen 12/16/21 12/16/21 12/16/21 23:16 23:16 23:16 RDW Lymph % (Auto) Lymph # (Auto) Seg Neutrophils % Seg Neutrophils # INR ABG pH ABG pO2 ABG HCO3 ABG O2 Saturation ABG Hemoglobin Potassium Chloride BUN Creatinine Glucose TSH 4.480 H Salicylates < 0.3 L Acetaminophen 5.0 L 12/17/21 01:25 RDW Lymph % (Auto) Lymph # (Auto) Seg Neutrophils % Seg Neutrophils # INR ABG pH 7.332 L ABG pO2 195.4 H ABG HCO3 29.8 H ABG O2 Saturation 99.2 H ABG Hemoglobin 11.6 L Potassium Chloride BUN Creatinine Glucose TSH Salicylates Acetaminophen - Diagnostic Findings Chest x-ray: image reviewed Assessment and Plan Acute and chronic hypoxic respiratory failure on MVS Acute Toxic and Metabolic Encephalopathy Polysubstance Abuse, UDS positive Multiple Falls at Home Severe COPD- on Noctural Oxygen at Home, 2L NC Recurrent Pneumonia LLL Pneumonia Acute Kidney Injury(FEROZ) most likely Vasomotor Nephropathy Hyperkalemia -Titrate supplemental oxygen to keep SpO2 89-92% -VAP bundle addressed, aspiration precautions HOB>30 -Lung protective strategies, Daily assessment for readiness to wean -Daily SBT and SAT trials as tolerated -Bronchodilators ISABEL/YO -Antibiotics for CAP( Ceftriaxone, Azithromycin for 5 days of therapy) -Tracheal cultures , follow cultures and de-escalate antibiotics based on culture data and clinical response -Stress ulcer prophylaxis- Famotidine -VTE prophylaxis- Enoxaparin -Fentanyl for analgesia, -Stop benzodiazepines, limit delirium - ABG and CXR as clinically indicated - Enteric nutrition support, place NGT/OGT placement and initiate tube feeding -Mobility, off loading and frequent turning per facility protocol to prevent pressure ulcers -Trend temperature curve and WCC -Maintain euglycemia. Keep blood glucose 140-180mg/dL while critically ill. Avoid hypoglycemia -Monitor hemodynamics closely -Avoid nephrotoxins and renally dose all medications -Medical management of hyperkalemia -Discontinue Warren catheter -Will need substance abuse counselling when he is clinically able to participate in meaningful discussion Discussed with respiratory care, nursing care and clinical pharmacist. CONDITION: CRITICAL PROGNOSIS: GUARDED CODE STATUS: FULL CODE The high probability of a clinically significant, sudden or life threatening deterioration of the [multiple] system(s) required my full and direct attention, intervention and personal management. The aggregate critical care time was [75] minutes. This time is in addition to time spent performing reported procedures but includes the following: [x] Data Review and interpretation [x] Patient assessment and monitoring of vital signs [x] Documentation [x] Medication orders and management
[2021-12-17] MEDS ORDERED: SENNOSIDES/DOCUSATE SODIUM 8.6/50 MG TAB FEEDTUBE SCH (10:00)
--- NOTE | 2021-12-17 13:03 | Progress Note ---
Assessment and Plan Assessment and plan: This is a 61-year-old male with known history of former smoker, severe COPD, on noctural oxygen at home, recurrent pneumonia, and polysubstance abuse admitted for acute metabolic encephalopathy and acute hypoxic respiratory failure requiring ventilatory support. Hospital Course to Date: 12/17: Intubated and Sedated, on low vent settings. BP is soft this am, not on any pressors s/p 500 cc IVF bolus, BP improved. Patient also presented with an FEROZ, probably due to hypovolemia/dehydation. Continue current IVF hydration for now. Repeat labs pending. Patient remains afebrile, cultures are in process. Will continue current empiric IV antibiotics for possible CAP. Wean off sedation as tolerated for possible SBT later on today. [facility] is following. Assessment and Plan #Acute Toxic and Metabolic Encephalopathy #Polysubstance Abuse #Multiple Falls at Home - UDS +Amph and Benzo - Imagings are unremarkable - Intubated and Sedated, on fentanyl - Plan to wean sedation as tolerated for RASS 0 to -1 - Possible SAT and SBT later on today - Avoid benzodiazepine to reduce the possibility of delirium - PRN Analgesia for CPOT greater than 3 - Maintenance of sleep-wake cycle - Fall precaution #Acute Hypoxic Respiratory Failure #Severe COPD- on Noctural Oxygen at Home, 2L NC #Recurrent Pneumonia - Intubated on 12/17 for airway protection - Vent setting: PRVC-45%,6,22,450 - AM ABG noted - CCM consulted, appreciate recommendations - VAP bundle addressed - Aspiration precaution HOB above 30 - Daily SBT and SAT trials as tolerated - Daily ABG and CXR - Continue SPO2 monitoring for SPO2 goal above 92% #LLL Pneumonia #H/o Recurrent Pneumonia - Chest x-ray shows left basilar consolidation representing either pneumonia or actelectasis - Cultures and COVID PCR pending - On empiric IV Antibiotics- Azitho and Rocephin - Check CRP and Procal - F/U on cultures - Daily CBC monitor - Consider ID consult if febrile or leukocytosis occur #Acute Kidney Injury(FEROZ) most likely Vasomotor Nephropathy #Hyperkalemia - Probably due to hypovolemia/Dehydration - Baseline mentation is unknown - On IVF hydration - Strict intake and output - Avoid nephrotoxic medications; Renally dose medications - Monitor and replace electrolytes as needed - Repeat Labs pending #GI/DVT Prophylaxis - PPI- Pepcid - Heparin SubQ - SCDs to bilateral lower extremities while in bed #Advance Care Planning - Disease education data, care plan, diagnoses, and prognosis were discussed with patient's , Nuvia Olivera, via phone. Patient is a FULL code. Patient's acknowledged understanding and agreed with current care plan. The high probability of a clinically significant, sudden or life threatening deterioration of the [multiple] system(s) required my full and direct attention, intervention and personal management. The aggregate critical care time was [60] minutes. This time is in addition to time spent performing reported procedures but includes the following: [x] Data Review and interpretation [x] Patient assessment and monitoring of vital signs [x] Documentation [x] Medication orders and management Disposition Plan: ICU Total Time Spent with Patient (Minutes): 60 History Interval history: Patient seen and examined at the bedside. Intubated and sedated, on fentanyl gtt. BP borderline, remains vitals stable. GEOVANNA overnight Hospitalist Physical - Constitutional Vitals: Temp Pulse Resp BP Pulse Ox 98.3 F 78 15 95/62 100 12/17/21 11:23 12/17/21 08:35 12/17/21 06:46 12/17/21 09:40 12/17/21 09:40 General appearance: Present: other (Intubated and Sedated) - EENT Eyes: Present: PERRL - Respiratory Respiratory effort: normal Respiratory: bilateral: CTA - Cardiovascular Rhythm: regular Heart Sounds: Present: S1 & S2 - Extremities Extremities: no ischemia, pulses intact, pulses symmetrical Peripheral Pulses: within normal limits - Abdominal General gastrointestinal: soft, non-distended, normal bowel sounds - Integumentary Integumentary: Present: warm, dry - Psychiatric Psychiatric: other (Intubated and Sedated) - Neurologic Neurologic: moves all extremities (Nonpurposeful), other (Intubated and Sedated) - Allied Health Allied health notes reviewed: nursing, case management HEART Score - HEART Score Troponin: Troponin T 0.020 ng/mL (0.00-0.029) 12/16/21 23:16 Results - Labs CBC & Chem 7: 12/16/21 23:16 12/17/21 08:20 Labs: Laboratory Last Values WBC 9.4 K/mm3 (4.5-11.0) 12/16/21 23:16 RBC 4.62 M/mm3 (3.65-5.03) 12/16/21 23:16 Hgb 13.8 gm/dl (11.8-15.2) 12/16/21 23:16 Hct 42.0 % (35.5-45.6) 12/16/21 23:16 MCV 91 fl (84-94) 12/16/21 23:16 MCH 30 pg (28-32) 12/16/21 23:16 MCHC 33 % (32-34) 12/16/21 23:16 RDW 16.3 % (13.2-15.2) H 12/16/21 23:16 Plt Count 290 K/mm3 (140-440) 12/16/21 23:16 Lymph % (Auto) 5.7 % (13.4-35.0) L 12/16/21 23:16 [place] % (Auto) 7.1 % (0.0-7.3) 12/16/21 23:16 Eos % (Auto) 0.2 % (0.0-4.3) 12/16/21 23:16 Baso % (Auto) 0.4 % (0.0-1.8) 12/16/21 23:16 Lymph # (Auto) 0.5 K/mm3 (1.2-5.4) L 12/16/21 23:16 [place] # (Auto) 0.7 K/mm3 (0.0-0.8) 12/16/21 23:16 Eos # (Auto) 0.0 K/mm3 (0.0-0.4) 12/16/21 23:16 Baso # (Auto) 0.0 K/mm3 (0.0-0.1) 12/16/21 23:16 Seg Neutrophils % 86.6 % (40.0-70.0) H 12/16/21 23:16 Seg Neutrophils # 8.2 K/mm3 (1.8-7.7) H 12/16/21 23:16 PT 12.9 Sec. (12.2-14.9) 12/16/21 23:16 INR 0.86 (0.87-1.13) L 12/16/21 23:16 APTT 24.3 Sec. (24.2-36.6) 12/16/21 23:16 ABG pH 7.332 pH Units (7.350-7.450) L 12/17/21 01:25 ABG pCO2 57.6 mm Hg 12/17/21 01:25 ABG pO2 195.4 mm Hg (80.0-90.0) H 12/17/21 01:25 ABG HCO3 29.8 mmol/L (20.0-26.0) H 12/17/21 01:25 ABG O2 Saturation 99.2 % (95.0-99.0) H 12/17/21 01:25 ABG O2 Content 16.2 (0.0-44) 12/17/21 01:25 ABG Base Excess 2.8 mmol/L (-2.0-3.0) 12/17/21 01:25 ABG Hemoglobin 11.6 gm/dl (14.0-18.0) L 12/17/21 01:25 ABG Carboxyhemoglobin 2.4 % (0.0-5.0) 12/17/21 01:25 ABG Methemoglobin 0.5 % (0.0-1.5) 12/17/21 01:25 Oxyhemoglobin 96.3 % (95.0-99.0) 12/17/21 01:25 FiO2 70 % 12/17/21 01:25 Sodium 140 mmol/L (137-145) 12/16/21 23:16 Potassium 5.4 mmol/L (3.6-5.0) H 12/16/21 23:16 Chloride 97.2 mmol/L (98-107) L 12/16/21 23:16 Carbon Dioxide 30 mmol/L (22-30) 12/16/21 23:16 Anion Gap 18 mmol/L 12/16/21 23:16 BUN 29 mg/dL (9-20) H 12/16/21 23:16 Creatinine 1.6 mg/dL (0.8-1.3) H 12/16/21 23:16 Estimated GFR 44 ml/min 12/16/21 23:16 BUN/Creatinine Ratio 18 % 12/16/21 23:16 Glucose 186 mg/dL (75-100) H 12/16/21 23:16 POC Glucose 99 mg/dL (70-105) 12/17/21 11:10 Lactic Acid 1.30 mmol/L (0.7-2.0) 12/17/21 04:37 Calcium 9.4 mg/dL (8.4-10.2) 12/16/21 23:16 Magnesium 2.30 mg/dL (1.7-2.3) 12/16/21 23:16 Total Bilirubin 0.20 mg/dL (0.1-1.2) 12/16/21 23:16 AST 31 units/L (5-40) 12/16/21 23:16 ALT 37 units/L (7-56) 12/16/21 23:16 Alkaline Phosphatase 77 units/L (35-129) 12/16/21 23:16 Ammonia 43.0 umol/L (25-60) 12/16/21 23:16 Total Creatine Kinase 141 units/L (55-170) 12/16/21 23:16 Troponin T 0.020 ng/mL (0.00-0.029) 12/16/21 23:16 Total Protein 6.5 g/dL (6.3-8.2) 12/16/21 23:16 Albumin 4.2 g/dL (3.9-5) 12/16/21 23:16 Albumin/Globulin Ratio 1.8 % 12/16/21 23:16 TSH 4.480 mlU/mL (0.270-4.200) H 12/16/21 23:16 Urine Color Yellow (Yellow) 12/16/21 23:29 Urine Turbidity Slightly-cloudy (Clear) 12/16/21 23: Urine pH 5.0 (5.0-7.0) 12/16/21 23:29 Ur Specific [place] 1.018 (1.003-1.030) 12/16/21 23: Urine Protein 100 mg/dl mg/dL (Negative) 12/16/21 23: Urine Glucose (UA) Neg mg/dL (Negative) 12/16/21 23: Urine Ketones Neg mg/dL (Negative) 12/16/21 23: Urine Blood Neg (Negative) 12/16/21 23: Urine Nitrite Neg (Negative) 12/16/21 23: Urine Bilirubin Neg (Negative) 12/16/21 23: Urine Urobilinogen < 2 mg/dL (<2.0) 12/16/21 23:29 Ur Leukocyte Esterase Neg (Negative) 12/16/21 23:29 Urine WBC (Auto) 4.0 /HPF (0.0-6.0) 12/16/21 23:29 Urine RBC (Auto) 2.0 /HPF (0.0-6.0) 12/16/21 23:29 Hyaline Casts 67 /LPF 12/16/21 23:29 Granular Casts 9 /LPF 12/16/21 23:29 Urine Mucus 1+ /HPF 12/16/21 23:29 Urine Sperm 1+ /HPF ([employer]) 12/16/21 23:29 Salicylates < 0.3 mg/dL (2.8-20.0) L 12/16/21 23:16 Urine Opiates Screen Presumptive negative 12/16/21 23:29 Urine Methadone Screen Presumptive negative 12/16/21 23:29 Acetaminophen 5.0 ug/mL (10.0-30.0) L 12/16/21 23:16 Ur Barbiturates Screen Presumptive negative 12/16/21 23:29 Ur Phencyclidine Scrn Presumptive negative 12/16/21 23:29 Ur Amphetamines Screen Presumptive positive 12/16/21 23:29 U Benzodiazepines Scrn Presumptive positive 12/16/21 23:29 Urine Cocaine Screen Presumptive negative 12/16/21 23:29 U Marijuana (THC) Screen Presumptive negative 12/16/21 23:29 Drugs of Abuse Note Disclamer 12/16/21 23:29 Plasma/Serum Alcohol < 0.01 % (0-0.07) 12/16/21 23:16 Microbiology: Microbiology 12/17/21 00:10 Peripheral/Venous Blood Culture - Preliminary Culture in Progress 12/17/21 00:16 Peripheral/Venous Blood Culture - Preliminary Culture in Progress Warren/IV: Voiding Method Indwelling Catheter Active Medications - Current Medications Current Medications: Generic Name Dose Route Start Last Admin Trade Name Freq PRN Reason Stop Dose Admin Acetaminophen 650 mg 12/17/21 02:56 Acetaminophen 650 Mg Rect Supp GA Q6H PRN Pain MILD(1-3)/Fever >100.5/KRUEGER Famotidine 20 mg 12/17/21 10:00 12/17/21 09:11 Famotidine 20 Mg/2 Ml Inj IV 20 mg BID SHILA Administration Heparin Sodium (Porcine) 5,000 unit 12/17/21 10:00 12/17/21 09:11 Heparin 5,000 Unit/1 Ml Vial SUB-Q 5,000 unit Q12HR SHILA Administration Hydrophilic Ointment 1 applic 12/16/21 23:01 Lip Therapy Vaseline TP Q2HR PRN Dry Lips Fentanyl Citrate 1,000 mcg in 100 mls @ 2.5 mls/hr 12/16/21 23:45 12/17/21 09:10 Fentanyl Drip Premix IV 150 mcg/hr TITR SHILA 15 mls/hr Administration Protocol 25 MCG/HR Sodium Chloride 1,000 mls @ 125 mls/hr 12/17/21 03:00 12/17/21 06:00 Nacl 0.9% 1000 Ml IV 125 mls/hr DIRECT SHILA Administration Ceftriaxone Sodium 2 gm in 100 mls @ 200 mls/hr 12/18/21 03:00 Rocephin/Ns 2 Gm/100 Ml IV Q24H SHILA Protocol Azithromycin 500 mg in 250 mls @ 250 mls/hr 12/18/21 03:00 Zithromax/Ns IV Q24H SHILA Protocol Multi-Ingred Cream/Lotion/Oil/Oint 1 applic 12/16/21 23:01 Mineral Oil/Petrolatum, White Ophth Oint 3.5 Gm OU Q4HR PRN Dry Eye(s) Naloxone HCl 0.1 mg 12/17/21 01:03 Naloxone 0.4 Mg/1 Ml Inj IV Q2MIN PRN Res Rate </= 8 or 02 SAT < 92% Senna/Docusate Sodium 1 tab 12/17/21 10:00 Sennosides/Docusate Sodium 8.6/50 Mg Tab FEEDTUBE BID SHILA Sodium Chloride 10 ml 12/17/21 10:00 12/17/21 09:13 Sodium Chloride 0.9% 10 Ml Flush Syringe IV 10 ml BID SHILA Administration Sodium Chloride 10 ml 12/17/21 02:56 Sodium Chloride 0.9% 10 Ml Flush Syringe IV PRN PRN LINE FLUSH Nutrition/Malnutrition Assess - Dietary Evaluation Nutrition/Malnutrition Findings: Nutrition Notes Start: 12/17/21 08:30 Freq: Status: Active Protocol: Document 12/17/21 08:30 CM (Rec: 12/17/21 08:33 CM [id number]) Co-Sign 12/17/21 08:30 WW Nutrition Notes Need for Assessment generated from: MD Order,Education Initial or Follow up Brief Note Current Diagnosis Acute Kidney Injury, Respiratory Failure Other Pertinent Diagnosis AMS, Dehydration Current Diet NPO Labs/Tests 12/17: K 5.4 Cl 97.2 BUN 29 Cr 1.6 Glu 186 Pertinent Medications 12/17: Reviewed Height 6 ft Weight 79.742 kg [place] Body Weight (kg) 80.90 BMI 23.8 Weight change and time frame No data available Subjective/Other Information RD consult for diet education. Pt currently intubated and sedated - inappropriate for diet education at this time. Physical assessment reviewed. Will monitor need for future diet education. Burn Absent Trauma Absent GI Symptoms None Food Allergy No Skin Integrity/Comment Jos 17/No breakdown/No symptoms Current % PO Other Nutrition Intervention Follow-Up By: 12/19/21 Additional Comments Monitor need for future diet education and diet advancement .
[2021-12-17] MEDS ORDERED: dexAMETHasone 4 MG/ML VIAL IV SCH (15:00)
--- NOTE | 2021-12-17 15:25 | XRay Report ---
ABDOMEN 1 VIEW 12/17/2021 3:00 PM INDICATION / CLINICAL INFORMATION: dobhoff placement. COMPARISON: Radiographs 12/16/2021 FINDINGS: TUBES / LINES: An enteric tube passes subdiaphragmatically with the tip projecting at the body of the stomach. BOWEL GAS PATTERN: No significant abnormality. FREE AIR / EXTRALUMINAL GAS: None. ADDITIONAL FINDINGS: No significant additional findings. IMPRESSION: 1. An enteric tube passes subdiaphragmatically with the tip projecting in the body of the stomach. Signer Name: Francisco Hinojosa MD Signed: 12/17/2021 3:21 PM Workstation Name: [id number]
[2021-12-17 15:41] LABS: BUN/Creatinine Ratio 23; Blood Urea Nitrogen 25 mg/dL (9-20); Calcium 8.2 mg/dL (8.4-10.2); Hemolysis Index 5
[2021-12-17] MEDS: QUEtiapine 25 MG TAB PO SCH (21:50)
[2021-12-17] MEDS: SENNOSIDES/DOCUSATE SODIUM 8.6/50 MG TAB FEEDTUBE SCH (21:51)
[2021-12-18] MEDS: SODIUM CHLORIDE 0.9% 1000 ML 1,000 ML IV SCH (01:04)
--- NOTE | 2021-12-18 02:31 | XRay Report ---
CHEST 1 VIEW 12/18/2021 1:36 AM INDICATION / CLINICAL INFORMATION: follow up respiratory failure. COMPARISON: chest radiograph performed 12/16/2021 FINDINGS: SUPPORT DEVICES: Satisfactory endotracheal tube and nasogastric feeding tube position. HEART / MEDIASTINUM: Stable cardiomediastinal silhouette for AP technique. LUNGS / PLEURA: No pneumothorax. Stable pulmonary findings without interval detrimental change. ADDITIONAL FINDINGS: No significant additional findings. IMPRESSION: 1. Stable cardiopulmonary findings without pneumothorax or other interval detrimental change. 2. Satisfactory endotracheal tube and nasogastric feeding tube position. Signer Name: Pascual Rees MD Signed: 12/18/2021 2:27 AM Workstation Name: [id number]
[2021-12-18] MEDS ORDERED: AZITHROMYCIN/NS 500 MG/250 ML 500 MG/250 ML BAG IV SCH (03:00)
[2021-12-18] MEDS ORDERED: cefTRIAXone/NS 2 GM/100 ML 2 GM/100 ML BAG IV SCH (03:00)
[2021-12-18 05:16] LABS: ABG HCO3 25.6 mmol/L (20.0-26.0); ABG Methemoglobin 0.5 % (0.0-1.5); ABG Oxygen Saturation 98.8 % (95.0-99.0); ABG PCO2 45.9 mm Hg; ABG PH 7.365 pH Units (7.350-7.450); ABG PO2 153.6 mm Hg (80.0-90.0)
[2021-12-18 05:20] LABS: Basophils % (Auto) 0.3 % (0.0-1.8); Eosinophils % (Auto) 0.6 % (0.0-4.3); Hematocrit 35.1 % (35.5-45.6); Hemoglobin 11.6 gm/dl (11.8-15.2); Lymphocytes # (Auto) 0.6 K/mm3 (1.2-5.4); Lymphocytes % (Auto) 7.8 % (13.4-35.0); Mean Corpuscular HGB Conc 33 % (32-34); Mean Corpuscular Volume 90 fl (84-94); Monocytes # (Auto) 0.4 K/mm3 (0.0-0.8); Monocytes % (Auto) 4.6 % (0.0-7.3); Platelet Count 215 K/mm3 (140-440); Red Cell Distribution Width 15.6 % (13.2-15.2)
[2021-12-18 05:31] LABS: BUN/Creatinine Ratio 34; Blood Urea Nitrogen 27 mg/dL (9-20); Calcium 8.4 mg/dL (8.4-10.2); Hemolysis Index 22
--- NOTE | 2021-12-18 08:31 | Progress Note ---
Assessment and Plan Acute and chronic hypoxic respiratory failure on MVS Acute Toxic and Metabolic Encephalopathy Polysubstance Abuse, UDS positive Multiple Falls at Home Severe COPD- on Noctural Oxygen at Home, 2L NC Recurrent Pneumonia LLL Pneumonia Acute Kidney Injury(FEROZ) most likely Vasomotor Nephropathy Hyperkalemia COVID positive Place on SBT 08/26 for 1 hour, get weaning parameters- NIF,RSBI, if acceptable plan to liberate from MVS One dose of Furosemide now- appears volume up Monitor for urinary retention Patient has been intermittently COVID positive since September 2021, received 2 dose of Remdesivir. Will recommend that we discontinue antibiotics, discontinue Dexamethasone He was intubated for mental status and not respiratory complains -Titrate supplemental oxygen to keep SpO2 89-92% -VAP bundle addressed, aspiration precautions HOB>30 -Lung protective strategies, Daily assessment for readiness to wean -Bronchodilators ISABEL/YO -Stress ulcer prophylaxis- Famotidine -VTE prophylaxis- Enoxaparin -Fentanyl for analgesia, -Stop benzodiazepines, limit delirium - ABG and CXR as clinically indicated -Mobility, off loading and frequent turning per facility protocol to prevent pressure ulcers -Trend temperature curve and WCC -Maintain euglycemia. Keep blood glucose 140-180mg/dL while critically ill. Avoid hypoglycemia -Monitor hemodynamics closely -Will need substance abuse counselling when he is clinically able to participate in meaningful discussion Discussed with respiratory care, nursing care and clinical pharmacist. CONDITION: CRITICAL PROGNOSIS: GUARDED CODE STATUS: FULL CODE The high probability of a clinically significant, sudden or life threatening deterioration of the [multiple] system(s) required my full and direct attention, intervention and personal management. The aggregate critical care time was [35] minutes. This time is in addition to time spent performing reported procedures but includes the following: [x] Data Review and interpretation [x] Patient assessment and monitoring of vital signs [x] Documentation [x] Medication orders and management Subjective Date of service: 12/18/21 Interval history: Follow up for: Acute and chronic hypoxic respiratory failure on MVS; Acute Toxic and Metabolic Encephalopathy; Polysubstance Abuse, UDS positive; Multiple Falls at Home; Severe COPD- on Noctural Oxygen at Home, 2L NC; Recurrent Pne umonia; COVID positive Seen and examined. Vitals, labs, medications, chart reviewed. Urinary retention over night, orally intubated. No adverse overnight events. No fevers, no vomiting. Discussed with respiratory care, nursing and clinical pharmacist. Remains orally intubated to [facility] Objective Vital Signs - 12hr 12/18/21 12/18/21 12/18/21 00:00 00:25 04:00 Temperature 97.9 F 97.8 F Pulse Rate 80 68 81 Blood Pressure 95/63 O2 Sat by Pulse 99 98 99 Oximetry 12/18/21 12/18/21 04:45 05:42 Temperature Pulse Rate 92 H Blood Pressure 103/67 O2 Sat by Pulse 96 98 Oximetry Constitutional: no acute distress, alert, other (orally intubated to [facility]) Eyes: non-icteric ENT: oropharynx moist Neck: supple Effort: normal Ascultation: Bilateral: clear, diminished breath sounds Cardiovascular: regular rate and rhythm, other (S1,S2) Gastrointestinal: normoactive bowel sounds, soft, non-tender, non-distended Integumentary: normal Extremities: no cyanosis, no edema, other (tatooed) Neurologic: normal mental status, non-focal exam, pupils equal and round, motor strength normal and Psychiatric: mood appropriate, affect normal CBC and BMP: 12/18/21 05:06 12/18/21 05:06 ABG, PT/INR, D-dimer: ABG ABG pH 7.365 pH Units (7.350-7.450) 12/18/21 04:55 ABG pCO2 45.9 mm Hg 12/18/21 04:55 ABG pO2 153.6 mm Hg (80.0-90.0) H 12/18/21 04:55 ABG O2 Saturation 98.8 % (95.0-99.0) 12/18/21 04:55 PT/INR, D-dimer PT 12.9 Sec. (12.2-14.9) 12/16/21 23:16 INR 0.86 (0.87-1.13) L 12/16/21 23:16 D-Dimer 869.61 ng/mlDDU (0-234) H 12/17/21 08:19 Abnormal lab findings: Abnormal Labs 12/16/21 12/16/21 12/16/21 23:16 23:16 23:16 Hgb Hct RDW 16.3 H Lymph % (Auto) 5.7 L Lymph # (Auto) 0.5 L Seg Neutrophils % 86.6 H Seg Neutrophils # 8.2 H INR 0.86 L D-Dimer ABG pH ABG pO2 ABG HCO3 ABG O2 Saturation ABG Hemoglobin Potassium 5.4 H Chloride 97.2 L BUN 29 H Creatinine 1.6 H Glucose 186 H POC Glucose Calcium Lactate Dehydrogenase TSH Salicylates Acetaminophen Coronavirus (PCR) 12/16/21 12/16/21 12/16/21 23:16 23:16 23:16 Hgb Hct RDW Lymph % (Auto) Lymph # (Auto) Seg Neutrophils % Seg Neutrophils # INR D-Dimer ABG pH ABG pO2 ABG HCO3 ABG O2 Saturation ABG Hemoglobin Potassium Chloride BUN Creatinine Glucose POC Glucose Calcium Lactate Dehydrogenase TSH 4.480 H Salicylates < 0.3 L Acetaminophen 5.0 L Coronavirus (PCR) 12/17/21 12/17/21 12/17/21 01:25 08:19 08:20 Hgb Hct RDW Lymph % (Auto) Lymph # (Auto) Seg Neutrophils % Seg Neutrophils # INR D-Dimer 869.61 H ABG pH 7.332 L ABG pO2 195.4 H ABG HCO3 29.8 H ABG O2 Saturation 99.2 H ABG Hemoglobin 11.6 L Potassium Chloride BUN 25 H Creatinine Glucose POC Glucose Calcium 8.2 L Lactate Dehydrogenase 188 H TSH Salicylates Acetaminophen Coronavirus (PCR) 12/17/21 12/18/21 12/18/21 08:30 04:55 05:02 Hgb Hct RDW Lymph % (Auto) Lymph # (Auto) Seg Neutrophils % Seg Neutrophils # INR D-Dimer ABG pH ABG pO2 153.6 H ABG HCO3 ABG O2 Saturation ABG Hemoglobin 11.5 L Potassium Chloride BUN Creatinine Glucose POC Glucose 152 H Calcium Lactate Dehydrogenase TSH Salicylates Acetaminophen Coronavirus (PCR) Positive A 12/18/21 12/18/21 05:06 05:06 Hgb 11.6 L Hct 35.1 L D RDW 15.6 H Lymph % (Auto) 7.8 L Lymph # (Auto) 0.6 L Seg Neutrophils % 86.7 H Seg Neutrophils # INR D-Dimer ABG pH ABG pO2 ABG HCO3 ABG O2 Saturation ABG Hemoglobin Potassium Chloride BUN 27 H Creatinine Glucose 124 H POC Glucose Calcium Lactate Dehydrogenase TSH Salicylates Acetaminophen Coronavirus (PCR) Chest x-ray: image reviewed Allied health notes reviewed: RT
[2021-12-18] MEDS ORDERED: FUROSEMIDE 20 MG/2 ML INJ ONE (08:52)
[2021-12-18] MEDS ORDERED: FUROSEMIDE 40 MG/4 ML INJ IV SCH (09:15)
[2021-12-18] MEDS: FAMOTIDINE 20 MG/2 ML INJ IV SCH (09:40)
[2021-12-18] MEDS: SENNOSIDES/DOCUSATE SODIUM 8.6/50 MG TAB FEEDTUBE SCH (09:40)
[2021-12-18] MEDS: HEPARIN 5,000 UNIT/1 ML VIAL SUB-Q SCH ×2 (09:40→22:52)
--- NOTE | 2021-12-18 12:11 | Progress Note ---
Assessment and Plan Assessment and plan: This is a 61-year-old male with known history of former smoker, severe COPD, on noctural oxygen at home, recurrent pneumonia, and polysubstance abuse admitted for acute metabolic encephalopathy and acute hypoxic respiratory failure requiring ventilatory support. Hospital Course to Date: 12/17: Intubated and Sedated, on low vent settings. BP is soft this am, not on any pressors s/p 500 cc IVF bolus, BP improved. Patient also presented with an FEROZ, probably due to hypovolemia/dehydation. Continue current IVF hydration for now. Repeat labs pending. Patient remains afebrile, cultures are in process. Will continue current empiric IV antibiotics for possible CAP. Wean off sedation as tolerated for possible SBT later on today. CCM is following. 12/18: Off sedations, awake and appropriate. Tolerating PSV trial this am, plan for possible extubation this am. Patient remains afebrile, VSS. COVID PCR positive, most likely chronic. Per patient's patient was hospitalized in September 2021 for COPD exacerbation and was found COVID positive then, patient received X2 days of treatment with Remdesivir. CRP and Procal are unremarkable, will hold treatment/empiric IV abx for now. Patient on low vent settings, tolerating PSV, continue to follow up on cultures. Renal function normalized, urinary retention overnight s/p X1 staright Cath. Continue bladder scan and straight cath per protocol, Flomax added for urinary retention. Assessment and Plan #Acute Toxic and Metabolic Encephalopathy #Polysubstance Abuse #Multiple Falls at Home - UDS +Amph and Benzo - Imagings are unremarkable - Awake and appropriate, off sedation - seroquel Qhs - Avoid benzodiazepine to reduce the possibility of delirium - PRN Analgesia for CPOT greater than 3 - Maintenance of sleep-wake cycle - Fall precaution #Acute Hypoxic Respiratory Failure #Severe COPD- on Noctural Oxygen at Home, 2L NC #Recurrent Pneumonia - Intubated on 12/17 for airway protection - Vent setting: PSV-30%, 6 PS-6 - AM ABG noted - CCM consulted, appreciate recommendations - VAP bundle addressed - Aspiration precaution HOB above 30 - Daily SBT and SAT trials as tolerated - Daily ABG and CXR - Continue SPO2 monitoring for SPO2 goal above 92% - Of note: Patient's follow with Eugenio Busby oupatient. Patient has been on PO prednisone and Azithro on and off since September. Last course ended on 12/12 - Follow up with Pulmo and Cardiology at discharge for echo and LFT results. Per echocardiogram was performed with [facility] and LFT with Dr. Bose recently #LLL Pneumonia #COVID Infection- Chronic #H/o Recurrent Pneumonia - Chest x-ray shows left basilar consolidation representing either pneumonia or actelectasis - COVID PCR positive- Treated with remdesevir in September 2021. Received X2 COVID vaccine and a booster - CRP and Procal are unremarkable, Patient on low vent settings, tolerating PSV. - will hold treatment/empiric IV abx for now - F/U on cultures - Daily CBC monitor - Consider ID consult if febrile or leukocytosis occur #Acute Kidney Injury(FEROZ) most likely Vasomotor Nephropathy- improved #Hyperkalemia - Probably due to hypovolemia/Dehydration - Baseline mentation is unknown, renal function improved post IVF hydration - urinary retention overnight, continue bladder scan and straight cath per protocol. Flomax added - Strict intake and output - Avoid nephrotoxic medications; Renally dose medications - Monitor and replace electrolytes as needed #GI/DVT Prophylaxis - PPI- Pepcid - Heparin SubQ - SCDs to bilateral lower extremities while in bed #Advance Care Planning - Disease education data, care plan, diagnoses, and prognosis were discussed with patient's , Nuvia Olivera, via phone. Patient is a FULL code. Patient's acknowledged understanding and agreed with current care plan. The high probability of a clinically significant, sudden or life threatening deterioration of the [multiple] system(s) required my full and direct attention, intervention and personal management. The aggregate critical care time was [60] minutes. This time is in addition to time spent performing reported procedures but includes the following: [x] Data Review and interpretation [x] Patient assessment and monitoring of vital signs [x] Documentation [x] Medication orders and management Disposition Plan: ICU Total Time Spent with Patient (Minutes): 60 History Interval history: Patient seen and examined at the bedside. Stable on the vent, awake and appropriate. Off sedations, tolerating PSV trial this am. VSS. GEOVANNA overnight Hospitalist Physical - Constitutional Vitals: Temp Pulse Resp BP Pulse Ox 98 F 73 23 134/88 96 12/18/21 08:00 12/18/21 08:55 12/18/21 08:55 12/18/21 08:55 12/18/21 10:53 General appearance: Present: no acute distress, well-nourished - EENT Eyes: Present: PERRL ENT: hearing intact - Neck Neck: Present: normal ROM - Respiratory Respiratory effort: normal Respiratory: bilateral: rhonchi, wheezing - Cardiovascular Rhythm: regular Heart Sounds: Present: S1 & S2 - Extremities Extremities: no ischemia, pulses intact, pulses symmetrical Peripheral Pulses: within normal limits - Abdominal General gastrointestinal: soft, non-distended, normal bowel sounds - Integumentary Integumentary: Present: warm, dry - Psychiatric Psychiatric: appropriate mood/affect, cooperative - Neurologic Neurologic: CNII-XII intact, moves all extremities - Allied Health Allied health notes reviewed: nursing, case management HEART Score - HEART Score Troponin: Troponin T 0.020 ng/mL (0.00-0.029) 12/16/21 23:16 Results - Labs CBC & Chem 7: 12/18/21 05:06 12/18/21 05:06 Labs: Laboratory Last Values WBC 8.2 K/mm3 (4.5-11.0) 12/18/21 05:06 RBC 3.90 M/mm3 (3.65-5.03) 12/18/21 05:06 Hgb 11.6 gm/dl (11.8-15.2) L 12/18/21 05:06 Hct 35.1 % (35.5-45.6) L D 12/18/21 05:06 MCV 90 fl (84-94) 12/18/21 05:06 MCH 30 pg (28-32) 12/18/21 05:06 MCHC 33 % (32-34) 12/18/21 05:06 RDW 15.6 % (13.2-15.2) H 12/18/21 05:06 Plt Count 215 K/mm3 (140-440) 12/18/21 05:06 Lymph % (Auto) 7.8 % (13.4-35.0) L 12/18/21 05:06 [place] % (Auto) 4.6 % (0.0-7.3) 12/18/21 05:06 Eos % (Auto) 0.6 % (0.0-4.3) 12/18/21 05:06 Baso % (Auto) 0.3 % (0.0-1.8) 12/18/21 05:06 Lymph # (Auto) 0.6 K/mm3 (1.2-5.4) L 12/18/21 05:06 [place] # (Auto) 0.4 K/mm3 (0.0-0.8) 12/18/21 05:06 Eos # (Auto) 0.0 K/mm3 (0.0-0.4) 12/18/21 05:06 Baso # (Auto) 0.0 K/mm3 (0.0-0.1) 12/18/21 05:06 Seg Neutrophils % 86.7 % (40.0-70.0) H 12/18/21 05:06 Seg Neutrophils # 7.1 K/mm3 (1.8-7.7) 12/18/21 05:06 PT 12.9 Sec. (12.2-14.9) 12/16/21 23:16 INR 0.86 (0.87-1.13) L 12/16/21 23:16 APTT 24.3 Sec. (24.2-36.6) 12/16/21 23:16 D-Dimer 869.61 ng/mlDDU (0-234) H 12/17/21 08:19 ABG pH 7.365 pH Units (7.350-7.450) 12/18/21 04:55 ABG pCO2 45.9 mm Hg 12/18/21 04:55 ABG pO2 153.6 mm Hg (80.0-90.0) H 12/18/21 04:55 ABG HCO3 25.6 mmol/L (20.0-26.0) 12/18/21 04:55 ABG O2 Saturation 98.8 % (95.0-99.0) 12/18/21 04:55 ABG O2 Content 16.0 (0.0-44) 12/18/21 04:55 ABG Base Excess 0.0 mmol/L (-2.0-3.0) 12/18/21 04:55 ABG Hemoglobin 11.5 gm/dl (14.0-18.0) L 12/18/21 04:55 ABG Carboxyhemoglobin 1.3 % (0.0-5.0) 12/18/21 04:55 ABG Methemoglobin 0.5 % (0.0-1.5) 12/18/21 04:55 Oxyhemoglobin 97.1 % (95.0-99.0) 12/18/21 04:55 FiO2 45 % 12/18/21 04:55 Sodium 138 mmol/L (137-145) 12/18/21 05:06 Potassium 5.0 mmol/L (3.6-5.0) D 12/18/21 05:06 Chloride 104.9 mmol/L (98-107) 12/18/21 05:06 Carbon Dioxide 22 mmol/L (22-30) 12/18/21 05:06 Anion Gap 16 mmol/L 12/18/21 05:06 BUN 27 mg/dL (9-20) H 12/18/21 05:06 Creatinine 0.8 mg/dL (0.8-1.3) 12/18/21 05:06 Estimated GFR > 60 ml/min 12/18/21 05:06 BUN/Creatinine Ratio 34 % 12/18/21 05:06 Glucose 124 mg/dL (75-100) H 12/18/21 05:06 POC Glucose 152 mg/dL (70-105) H 12/18/21 05:02 Lactic Acid 1.30 mmol/L (0.7-2.0) 12/17/21 04:37 Calcium 8.4 mg/dL (8.4-10.2) 12/18/21 05:06 Magnesium 2.30 mg/dL (1.7-2.3) 12/16/21 23:16 Ferritin 50.3 ng/mL (30.0-300.0) 12/17/21 08:19 Total Bilirubin 0.20 mg/dL (0.1-1.2) 12/16/21 23:16 AST 31 units/L (5-40) 12/16/21 23:16 ALT 37 units/L (7-56) 12/16/21 23:16 Alkaline Phosphatase 77 units/L (35-129) 12/16/21 23:16 Ammonia 43.0 umol/L (25-60) 12/16/21 23:16 Lactate Dehydrogenase 188 units/L (91-180) H 12/17/21 08:20 Total Creatine Kinase 141 units/L (55-170) 12/16/21 23:16 Troponin T 0.020 ng/mL (0.00-0.029) 12/16/21 23:16 C-Reactive Protein 1.10 mg/dL (0.00-1.30) 12/17/21 08:20 Total Protein 6.5 g/dL (6.3-8.2) 12/16/21 23:16 Albumin 4.2 g/dL (3.9-5) 12/16/21 23:16 Albumin/Globulin Ratio 1.8 % 12/16/21 23:16 Procalcitonin 0.13 ng/mL (<0.15) 12/17/21 08:19 TSH 4.480 mlU/mL (0.270-4.200) H 12/16/21 23:16 Free T4 1.20 ng/dL (0.76-1.46) 12/17/21 Unknown Urine Color Yellow (Yellow) 12/16/21 23:29 Urine Turbidity Slightly-cloudy (Clear) 12/16/21 23:29 Urine pH 5.0 (5.0-7.0) 12/16/21 23:29 Ur Specific [place] 1.018 (1.003-1.030) 12/16/21 23:29 Urine Protein 100 mg/dl mg/dL (Negative) 12/16/21 23:29 Urine Glucose (UA) Neg mg/dL (Negative) 12/16/21 23:29 Urine Ketones Neg mg/dL (Negative) 12/16/21 23:29 Urine Blood Neg (Negative) 12/16/21 23:29 Urine Nitrite Neg (Negative) 12/16/21 23:29 Urine Bilirubin Neg (Negative) 12/16/21 23:29 Urine Urobilinogen < 2 mg/dL (<2.0) 12/16/21 23:29 Ur Leukocyte Esterase Neg (Negative) 12/16/21 23:29 Urine WBC (Auto) 4.0 /HPF (0.0-6.0) 12/16/21 23:29 Urine RBC (Auto) 2.0 /HPF (0.0-6.0) 12/16/21 23:29 Hyaline Casts 67 /LPF 12/16/21 23:29 Granular Casts 9 /LPF 12/16/21 23:29 Urine Mucus 1+ /HPF 12/16/21 23:29 Urine Sperm 1+ /HPF ([employer]) 12/16/21 23:29 Salicylates < 0.3 mg/dL (2.8-20.0) L 12/16/21 23:16 Urine Opiates Screen Presumptive negative 12/16/21 23:29 Urine Methadone Screen Presumptive negative 12/16/21 23:29 Acetaminophen 5.0 ug/mL (10.0-30.0) L 12/16/21 23:16 Ur Barbiturates Screen Presumptive negative 12/16/21 23:29 Ur Phencyclidine Scrn Presumptive negative 12/16/21 23:29 Ur Amphetamines Screen Presumptive positive 12/16/21 23:29 U Benzodiazepines Scrn Presumptive positive 12/16/21 23:29 Urine Cocaine Screen Presumptive negative 12/16/21 23:29 U Marijuana (THC) Screen Presumptive negative 12/16/21 23:29 Drugs of Abuse Note Disclamer 12/16/21 23:29 Plasma/Serum Alcohol < 0.01 % (0-0.07) 12/16/21 23:16 Coronavirus (PCR) Positive (Negative) A 12/17/21 08:30 Microbiology: Microbiology 12/17/21 00:10 Peripheral/Venous Blood Culture - Preliminary NO GROWTH AFTER 24 HOURS 12/17/21 00:16 Peripheral/Venous Blood Culture - Preliminary NO GROWTH AFTER 24 HOURS Warren/IV: Voiding Method Condom Catheter Active Medications - Current Medications Current Medications: Generic Name Dose Route Start Last Admin Trade Name Freq PRN Reason Stop Dose Admin Acetaminophen 650 mg 12/17/21 02:56 Acetaminophen 650 Mg Rect Supp MN Q6H PRN Pain MILD(1-3)/Fever >100.5/KRUEGER Famotidine 20 mg 12/17/21 10:00 12/18/21 09:40 Famotidine 20 Mg/2 Ml Inj IV 20 mg BID SHILA Administration Furosemide 20 mg 12/18/21 09:15 12/18/21 09:41 Furosemide 40 Mg/4 Ml Inj IV 12/18/21 12:15 Not Given ONCE@0915 SHILA Heparin Sodium (Porcine) 5,000 unit 12/17/21 10:00 12/18/21 09:40 Heparin 5,000 Unit/1 Ml Vial SUB-Q 5,000 unit Q12HR SHILA Administration Hydrophilic Ointment 1 applic 12/16/21 23:01 Lip Therapy Vaseline TP Q2HR PRN Dry Lips Fentanyl Citrate 1,000 mcg in 100 mls @ 2.5 mls/hr 12/16/21 23:45 12/18/21 08:45 Fentanyl Drip Premix IV 0 mcg/hr TITR SHILA 0 mls/hr Titration Protocol 25 MCG/HR Multi-Ingred Cream/Lotion/Oil/Oint 1 applic 12/16/21 23:01 Mineral Oil/Petrolatum, White Ophth Oint 3.5 Gm OU Q4HR PRN Dry Eye(s) Naloxone HCl 0.1 mg 12/17/21 01:03 Naloxone 0.4 Mg/1 Ml Inj IV Q2MIN PRN Res Rate </= 8 or 02 SAT < 92% Quetiapine Fumarate 50 mg 12/17/21 22:00 12/17/21 21:50 Quetiapine 25 Mg Tab PO 50 mg QHS SHILA Administration Senna/Docusate Sodium 2 tab 12/17/21 17:00 12/18/21 09:40 Sennosides/Docusate Sodium 8.6/50 Mg Tab FEEDTUBE 2 tab BID SHILA Administration Sodium Chloride 10 ml 12/17/21 10:00 12/18/21 09:41 Sodium Chloride 0.9% 10 Ml Flush Syringe IV 10 ml BID SHILA Administration Sodium Chloride 10 ml 12/17/21 02:56 Sodium Chloride 0.9% 10 Ml Flush Syringe IV PRN PRN LINE FLUSH Nutrition/Malnutrition Assess - Dietary Evaluation Nutrition/Malnutrition Findings: Nutrition Notes Start: 12/17/21 08:30 Freq: Status: Active Protocol: Document 12/17/21 16:15 TERRY (Rec: 12/17/21 16:41 TERRY [id number]) Nutrition Notes Initial or Follow up Assessment Current Diagnosis COPD,Respiratory Failure Other Pertinent Diagnosis s/p Falls, Substance Abuse, r/ o Pneumonia, Metabolic Encephalopathy, Dehydr Current Diet TF-Vital AF 1.2 Benji @ 70 ml/hr (from B 12/18). Labs/Tests 12/17: BUN 25, Ca 8.2. Pertinent Medications 12/17: Nutritionally unremarkable. Height 6 ft Weight 79.742 kg [place] Body Weight (kg) 80.90 BMI 23.8 Weight change and time frame None provided at admission. Weight Status Appropriate Subjective/Other Information RD consult for write/manage TF assessment. Pt currently on NPO since admission. I will prescribe TF to provide Pt with energy/protein needs during LOS. Pt intubated on the ER 12/16, according to History & Physical notes. Pt is on Mechanical Ventilation , O 2 saturation @ 98%, according to Physical Assessment History notes. Pt has missing teeth, according to Physical Assessment History notes. Pt shows an unspecified area of concern for skin risk at the time, according to Physical Assessment History notes. Percent of energy/protein needs met: Prescribed TF-Vital AF 1.2 Benji @ 70 ml/hr provides for energy/protein needs (2,010 Kcal/136 g) during LOS, 102% Kcal; 100% AA. Burn Absent Trauma Absent GI Symptoms None Food Allergy No Skin Integrity/Comment Unspecified area of concern. Current % PO Other #1 Nutrition Diagnosis Inadequate oral intake Etiology Pt is on Mechanical Ventilation. As Evidenced by Signs and Symptoms Pt currently on NPO. Is patient on ventilator? Yes Is Patient Ambulatory and/or Out of Bed No REE-([facility]-confined to bed) 1978.304 Calculation Used for Recommendations [facility] Additional Notes Protein: 1.2-2 g/Kg ABW; 96- 160 g/day. Fluids: 1 ml/Kcal, or as per MD. Nutrition Intervention Nutrition Support: Start TF-Vital AF 1.2 Benji @ 70 ml/hr. Flush: 100 ml water Q 4 hr, or as per MD. Kcal 2,010 Protein (gm) 126 Carbohydrates (gm) 185 Fat (gm) 90 Fluid (mL) 1,358 Fiber (gm) 9 % RDI: 102% Kcal; 100% AA. Goal #1 Provide at least 75% of energy /protein needs through Enteral Feeding during LOS. Follow-Up By: 12/20/21 Additional Comments Start monitoring TF tolerance and BM.
[2021-12-18] MEDS ORDERED: DOXAZOSIN 1 MG TAB PO SCH (13:00)
[2021-12-18] MEDS: TAMSULOSIN 0.4 MG CAP PO SCH (13:57)
[2021-12-18] MEDS: QUEtiapine 25 MG TAB PO SCH (22:51)
[2021-12-18] MEDS: FAMOTIDINE 20 MG TAB PO SCH (22:52)
[2021-12-18] MEDS: SENNOSIDES/DOCUSATE SODIUM 8.6/50 MG TAB PO SCH (22:52)
[2021-12-19 04:48] LABS: Mean Corpuscular HGB Conc 32 % (32-34); Mean Corpuscular Volume 90 fl (84-94); Platelet Count 209 K/mm3 (140-440); Red Cell Distribution Width 15.7 % (13.2-15.2)
[2021-12-19 04:58] LABS: BUN/Creatinine Ratio 20; Blood Urea Nitrogen 20 mg/dL (9-20); Calcium 8.9 mg/dL (8.4-10.2); Hemolysis Index 17
[2021-12-19] MEDS ORDERED: ALPRAZolam 0.5 MG TAB ONE (09:16)
[2021-12-19] MEDS ORDERED: ALPRAZolam 0.5 MG TAB PO PRN (10:00)
[2021-12-19] MEDS: SENNOSIDES/DOCUSATE SODIUM 8.6/50 MG TAB PO SCH (10:06)
[2021-12-19] MEDS: FAMOTIDINE 20 MG TAB PO SCH (10:06)
[2021-12-19] MEDS: TAMSULOSIN 0.4 MG CAP PO SCH (10:06)
[2021-12-19] MEDS: HEPARIN 5,000 UNIT/1 ML VIAL SUB-Q SCH (10:07)
--- NOTE | 2021-12-19 10:45 | Progress Note ---
<SANTO BROWN - Last Filed: 12/19/21 14:43> Assessment and Plan Assessment and plan: This is a 61-year-old male with known history of former smoker, severe COPD, on noctural oxygen at home, recurrent pneumonia, and polysubstance abuse admitted for acute metabolic encephalopathy and acute hypoxic respiratory failure req uiring ventilatory support. Hospital Course to Date: 12/17: Intubated and Sedated, on low vent settings. BP is soft this am, not on any pressors s/p 500 cc IVF bolus, BP improved. Patient also presented with an FEROZ, probably due to hypovolemia/dehydation. Continue current IVF hydration for now. Repeat labs pending. Patient remains afebrile, cultures are in process. Will continue current empiric IV antibiotics for possible CAP. Wean off sedation as tolerated for possible SBT later on today. CCM is following. 12/18: Off sedations, awake and appropriate. Tolerating PSV trial this am, plan for possible extubation this am. Patient remains afebrile, VSS. COVID PCR pos itive, most likely chronic. Per patient's patient was hospitalized in September 2021 for COPD exacerbation and was found COVID positive then, patient received X2 days of treatment with Remdesivir. CRP and Procal are unremarkable, will hold treatment/empiric IV abx for now. Patient on low vent settings, tolerating PSV, continue to follow up on cultures. Renal function normalized, urinary retention overnight s/p X1 staright Cath. Continue bladder scan and straight cath per protocol, Flomax added for urinary retention. 12/19: s/p extubation, fully AAO, on 2L NC this am. Patient appeared anxious and in distress, unable to complete a full sentence due to dyspnea. SPO2 above 92%. VSS. Patient voiced that he has severe PTSD and want to sign out AMA. Thorough discussion with patient and his at the bedside. Discussin patient's diagnoses and current condition, they were strong advice against leaving the hospital at this time due to patient current physical exam. Will start patient on PRN Xanax for anxiety, encourage IS and mobility. Plan to wean off O2 supplementation as tolerated. Both patient and his agreed with current care plan and agreed to stay one more night. All questions and concerns were addressed at this time. Patient is stable for transfer to the floor. Assessment and Plan #Acute Toxic and Metabolic Encephalopathy-resolved #Severe Anxiety #H/o PTSD- not on any meds at home #Polysubstance Abuse #Multiple Falls at Home - UDS +Amph and Benzo - Imagings are unremarkable - Awake and appropriate, off sedation - seroquel Qhs - PRN Xanax added for anxiety - PRN Analgesia for CPOT greater than 3 - Maintenance of sleep-wake cycle - Fall precaution #Acute Hypoxic Respiratory Failure #Severe COPD- on Noctural Oxygen at Home, 2L NC #Recurrent Pneumonia - Intubated on 12/17 for airway protection - 12/18 s/p extubation, on 2L NC this am with SOB/Dyspnea - CCM consulted, appreciate recommendations - Aspiration precaution HOB above 30 - PRN ABG and CXR per CCM - Continue SPO2 monitoring for SPO2 goal above 92% - Of note: Patient's follow with Dr. Bose, [facility]. Patient has been on PO prednisone and Azithro on and off since September. Last course ended on 12/12 - Follow up with Pulmo and Cardiology at discharge for echo and LFT results. Per echocardiogram was performed with [facility] and LFT with Dr. Bose recently #LLL Pneumonia #COVID Infection- Chronic #H/o Recurrent Pneumonia - Chest x-ray shows left basilar consolidation representing either pneumonia or actelectasis - COVID PCR positive- Treated with remdesevir in September 2021. Received X2 COVID vaccine and a booster - CRP and Procal are unremarkable, Patient on low vent settings, tolerating PSV. - will hold treatment/empiric IV abx for now - F/U on cultures - Daily CBC monitor - Consider ID consult if febrile or leukocytosis occur #Acute Kidney Injury(FEROZ) most likely Vasomotor Nephropathy- improved #Hyperkalemia - Probably due to hypovolemia/Dehydration - Baseline mentation is unknown, renal function improved post IVF hydration - urinary retention overnight, continue bladder scan and straight cath per protocol. Flomax added - Strict intake and output - Avoid nephrotoxic medications; Renally dose medications - Monitor and replace electrolytes as needed #GI/DVT Prophylaxis - PPI- Pepcid - Heparin SubQ - SCDs to bilateral lower extremities while in bed #Advance Care Planning - Disease education data, care plan, diagnoses, and prognosis were discussed with patient's , Nuvia Olivera, via phone. Patient is a FULL code. Patient's acknowledged understanding and agreed with current care plan. The high probability of a clinically significant, sudden or life threatening deterioration of the [multiple] system(s) required my full and direct attention, intervention and personal management. The aggregate critical care time was [60] minutes. This time is in addition to time spent performing reported procedures but includes the following: [x] Data Review and interpretation [x] Patient assessment and monitoring of vital signs [x] Documentation [x] Medication orders and management Disposition Plan: Transfer to the floor Total Time Spent with Patient (Minutes): 60 History Interval history: Patient seen and examined at the bedside. s/p extubation, AAO, on 2L NC this am. Appeared anxious and in distress, unable to complete a full sentence due to dyspnea. SPO2 above 92%. VSS. GEOVANNA overnight. Patient voiced that he has severe PTSD and want to sign out AMA Hospitalist Physical - Constitutional Vitals: Temp Pulse Resp BP Pulse Ox 98.5 F 76 18 134/76 94 12/18/21 18:00 12/19/21 06:00 12/19/21 06:00 12/19/21 06:00 12/19/21 06:00 General appearance: Present: mild distress, well-nourished, obese - EENT Eyes: Present: PERRL, EOM intact ENT: hearing intact - Neck Neck: Present: normal ROM - Respiratory Respiratory effort: labored, accessory muscle use Respiratory: bilateral: wheezing - Cardiovascular Rhythm: regular Heart Sounds: Present: S1 & S2 - Extremities Extremities: no ischemia, pulses intact, pulses symmetrical Peripheral Pulses: within normal limits - Abdominal General gastrointestinal: soft, non-distended, normal bowel sounds - Integumentary Integumentary: Present: warm, dry - Psychiatric Psychiatric: cooperative, other (Very anxious) - Neurologic Neurologic: CNII-XII intact, moves all extremities - Allied Health Allied health notes reviewed: nursing, case management HEART Score - HEART Score Troponin: Troponin T 0.020 ng/mL (0.00-0.029) 12/16/21 23:16 Results - Labs CBC & Chem 7: 12/19/21 04:05 12/19/21 04:05 Labs: Laboratory Last Values WBC 7.8 K/mm3 (4.5-11.0) 12/19/21 04:05 RBC 4.10 M/mm3 (3.65-5.03) 12/19/21 04:05 Hgb 12.0 gm/dl (11.8-15.2) 12/19/21 04:05 Hct 37.0 % (35.5-45.6) 12/19/21 04:05 MCV 90 fl (84-94) 12/19/21 04:05 MCH 29 pg (28-32) 12/19/21 04:05 MCHC 32 % (32-34) 12/19/21 04:05 RDW 15.7 % (13.2-15.2) H 12/19/21 04:05 Plt Count 209 K/mm3 (140-440) 12/19/21 04:05 Lymph % (Auto) 7.8 % (13.4-35.0) L 12/18/21 05:06 Howard % (Auto) 4.6 % (0.0-7.3) 12/18/21 05:06 Eos % (Auto) 0.6 % (0.0-4.3) 12/18/21 05:06 Baso % (Auto) 0.3 % (0.0-1.8) 12/18/21 05:06 Lymph # (Auto) 0.6 K/mm3 (1.2-5.4) L 12/18/21 05:06 Howard # (Auto) 0.4 K/mm3 (0.0-0.8) 12/18/21 05:06 Eos # (Auto) 0.0 K/mm3 (0.0-0.4) 12/18/21 05:06 Baso # (Auto) 0.0 K/mm3 (0.0-0.1) 12/18/21 05:06 Seg Neutrophils % 86.7 % (40.0-70.0) H 12/18/21 05:06 Seg Neutrophils # 7.1 K/mm3 (1.8-7.7) 12/18/21 05:06 PT 12.9 Sec. (12.2-14.9) 12/16/21 23:16 INR 0.86 (0.87-1.13) L 12/16/21 23:16 APTT 24.3 Sec. (24.2-36.6) 12/16/21 23:16 D-Dimer 869.61 ng/mlDDU (0-234) H 12/17/21 08:19 ABG pH 7.365 pH Units (7.350-7.450) 12/18/21 04:55 ABG pCO2 45.9 mm Hg 12/18/21 04:55 ABG pO2 153.6 mm Hg (80.0-90.0) H 12/18/21 04:55 ABG HCO3 25.6 mmol/L (20.0-26.0) 12/18/21 04:55 ABG O2 Saturation 98.8 % (95.0-99.0) 12/18/21 04:55 ABG O2 Content 16.0 (0.0-44) 12/18/21 04:55 ABG Base Excess 0.0 mmol/L (-2.0-3.0) 12/18/21 04:55 ABG Hemoglobin 11.5 gm/dl (14.0-18.0) L 12/18/21 04:55 ABG Carboxyhemoglobin 1.3 % (0.0-5.0) 12/18/21 04:55 ABG Methemoglobin 0.5 % (0.0-1.5) 12/18/21 04:55 Oxyhemoglobin 97.1 % (95.0-99.0) 12/18/21 04:55 FiO2 45 % 12/18/21 04:55 Sodium 139 mmol/L (137-145) 12/19/21 04:05 Potassium 4.7 mmol/L (3.6-5.0) 12/19/21 04:05 Chloride 100.2 mmol/L (98-107) 12/19/21 04:05 Carbon Dioxide 34 mmol/L (22-30) H D 12/19/21 04:05 Anion Gap 10 mmol/L 12/19/21 04:05 BUN 20 mg/dL (9-20) 12/19/21 04:05 Creatinine 1.0 mg/dL (0.8-1.3) 12/19/21 04:05 Estimated GFR > 60 ml/min 12/19/21 04:05 BUN/Creatinine Ratio 20 % 12/19/21 04:05 Glucose 94 mg/dL (75-100) 12/19/21 04:05 POC Glucose 152 mg/dL (70-105) H 12/18/21 05:02 Lactic Acid 1.30 mmol/L (0.7-2.0) 12/17/21 04:37 Calcium 8.9 mg/dL (8.4-10.2) 12/19/21 04:05 Phosphorus 2.80 mg/dL (2.5-4.5) 12/19/21 04:05 Magnesium 1.90 mg/dL (1.7-2.3) 12/19/21 04:05 Ferritin 50.3 ng/mL (30.0-300.0) 12/17/21 08:19 Total Bilirubin 0.20 mg/dL (0.1-1.2) 12/16/21 23:16 AST 31 units/L (5-40) 12/16/21 23:16 ALT 37 units/L (7-56) 12/16/21 23:16 Alkaline Phosphatase 77 units/L (35-129) 12/16/21 23:16 Ammonia 43.0 umol/L (25-60) 12/16/21 23:16 Lactate Dehydrogenase 188 units/L (91-180) H 12/17/21 08:20 Total Creatine Kinase 141 units/L (55-170) 12/16/21 23:16 Troponin T 0.020 ng/mL (0.00-0.029) 12/16/21 23:16 C-Reactive Protein 1.10 mg/dL (0.00-1.30) 12/17/21 08:20 Total Protein 6.5 g/dL (6.3-8.2) 12/16/21 23:16 Albumin 4.2 g/dL (3.9-5) 12/16/21 23:16 Albumin/Globulin Ratio 1.8 % 12/16/21 23:16 Procalcitonin 0.13 ng/mL (<0.15) 12/17/21 08:19 TSH 4.480 mlU/mL (0.270-4.200) H 12/16/21 23:16 Free T4 1.20 ng/dL (0.76-1.46) 12/17/21 Unknown Urine Color Yellow (Yellow) 12/16/21 23:29 Urine Turbidity Slightly-cloudy (Clear) 12/16/21 23:29 Urine pH 5.0 (5.0-7.0) 12/16/21 23:29 Ur Specific [place] 1.018 (1.003-1.030) 12/16/21 23:29 Urine Protein 100 mg/dl mg/dL (Negative) 12/16/21 23:29 Urine Glucose (UA) Neg mg/dL (Negative) 12/16/21 23:29 Urine Ketones Neg mg/dL (Negative) 12/16/21 23:29 Urine Blood Neg (Negative) 12/16/21 23:29 Urine Nitrite Neg (Negative) 12/16/21 23:29 Urine Bilirubin Neg (Negative) 12/16/21 23:29 Urine Urobilinogen < 2 mg/dL (<2.0) 12/16/21 23:29 Ur Leukocyte Esterase Neg (Negative) 12/16/21 23:29 Urine WBC (Auto) 4.0 /HPF (0.0-6.0) 12/16/21 23:29 Urine RBC (Auto) 2.0 /HPF (0.0-6.0) 12/16/21 23:29 Hyaline Casts 67 /LPF 12/16/21 23:29 Granular Casts 9 /LPF 12/16/21 23:29 Urine Mucus 1+ /HPF 12/16/21 23:29 Urine Sperm 1+ /HPF (BUDGET DIRECTOR) 12/16/21 23:29 Salicylates < 0.3 mg/dL (2.8-20.0) L 12/16/21 23:16 Urine Opiates Screen Presumptive negative 12/16/21 23:29 Urine Methadone Screen Presumptive negative 12/16/21 23:29 Acetaminophen 5.0 ug/mL (10.0-30.0) L 12/16/21 23:16 Ur Barbiturates Screen Presumptive negative 12/16/21 23:29 Ur Phencyclidine Scrn Presumptive negative 12/16/21 23:29 Ur Amphetamines Screen Presumptive positive 12/16/21 23:29 U Benzodiazepines Scrn Presumptive positive 12/16/21 23:29 Urine Cocaine Screen Presumptive negative 12/16/21 23:29 U Marijuana (THC) Screen Presumptive negative 12/16/21 23:29 Drugs of Abuse Note Disclamer 12/16/21 23:29 Plasma/Serum Alcohol < 0.01 % (0-0.07) 12/16/21 23:16 Coronavirus (PCR) Positive (Negative) A 12/17/21 08:30 Microbiology: Microbiology 12/17/21 00:10 Peripheral/Venous Blood Culture - Preliminary NO GROWTH AFTER 48 HOURS 12/17/21 00:16 Peripheral/Venous Blood Culture - Preliminary NO GROWTH AFTER 48 HOURS Warren/IV: Voiding Method Condom Catheter Active Medications - Current Medications Current Medications: Generic Name Dose Route Start Last Admin Trade Name Freq PRN Reason Stop Dose Admin Acetaminophen 650 mg 12/17/21 02:56 Acetaminophen 650 Mg Rect Supp [place] Q6H PRN Pain MILD(1-3)/Fever >100.5/KRUEGER Alprazolam 0.5 mg 12/19/21 10:00 12/19/21 09:20 Alprazolam 0.5 Mg Tab PO 0.5 mg Q8H PRN Administration Anxiety Famotidine 20 mg 12/18/21 22:00 12/19/21 10:06 Famotidine 20 Mg Tab PO 20 mg BID SHILA Administration Heparin Sodium (Porcine) 5,000 unit 12/17/21 10:00 12/19/21 10:07 Heparin 5,000 Unit/1 Ml Vial SUB-Q 5,000 unit Q12HR SHILA Administration Hydrophilic Ointment 1 applic 12/16/21 23:01 Lip Therapy Vaseline TP Q2HR PRN Dry Lips Multi-Ingred Cream/Lotion/Oil/Oint 1 applic 12/16/21 23:01 Mineral Oil/Petrolatum, White Ophth Oint 3.5 Gm OU Q4HR PRN Dry Eye(s) Naloxone HCl 0.1 mg 12/17/21 01:03 Naloxone 0.4 Mg/1 Ml Inj IV Q2MIN PRN Res Rate </= 8 or 02 SAT < 92% Quetiapine Fumarate 50 mg 12/17/21 22:00 12/18/21 22:51 Quetiapine 25 Mg Tab PO 50 mg QHS SHILA Administration Senna/Docusate Sodium 2 tab 12/18/21 22:00 12/19/21 10:06 Sennosides/Docusate Sodium 8.6/50 Mg Tab PO 2 tab BID SHILA Administration Sodium Chloride 10 ml 12/17/21 10:00 12/19/21 10:06 Sodium Chloride 0.9% 10 Ml Flush Syringe IV 10 ml BID SHILA Administration Sodium Chloride 10 ml 12/17/21 02:56 Sodium Chloride 0.9% 10 Ml Flush Syringe IV PRN PRN LINE FLUSH Tamsulosin HCl 0.4 mg 12/18/21 13:00 12/19/21 10:06 Tamsulosin 0.4 Mg Cap PO 0.4 mg QDAY SHILA Administration Nutrition/Malnutrition Assess - Dietary Evaluation Nutrition/Malnutrition Findings: Nutrition Notes Start: 12/17/21 08:30 Freq: Status: Active Protocol: Document 12/17/21 16:15 TERRY (Rec: 12/17/21 16:41 TERRY [id number]) Nutrition Notes Initial or Follow up Assessment Current Diagnosis COPD,Respiratory Failure Other Pertinent Diagnosis s/p Falls, Substance Abuse, r/ o Pneumonia, Metabolic Encephalopathy, Dehydr Current Diet TF-Vital AF 1.2 Benji @ 70 ml/hr (from B 12/18). Labs/Tests 12/17: BUN 25, Ca 8.2. Pertinent Medications 12/17: Nutritionally unremarkable. Height 6 ft Weight 79.742 kg [place] Body Weight (kg) 80.90 BMI 23.8 Weight change and time frame None provided at admission. Weight Status Appropriate Subjective/Other Information RD consult for write/manage TF assessment. Pt currently on NPO since admission. I will prescribe TF to provide Pt with energy/protein needs during LOS. Pt intubated on the ER 12/16, according to History & Physical notes. Pt is on Mechanical Ventilation , O 2 saturation @ 98%, according to Physical Assessment History notes. Pt has missing teeth, according to Physical Assessment History notes. Pt shows an unspecified area of concern for skin risk at the time, according to Physical Assessment History notes. Percent of energy/protein needs met: Prescribed TF-Vital AF 1.2 Benji @ 70 ml/hr provides for energy/protein needs (2,010 Kcal/136 g) during LOS, 102% Kcal; 100% AA. Burn Absent Trauma Absent GI Symptoms None Food Allergy No Skin Integrity/Comment Unspecified area of concern. Current % PO Other #1 Nutrition Diagnosis Inadequate oral intake Etiology Pt is on Mechanical Ventilation. As Evidenced by Signs and Symptoms Pt currently on NPO. Is patient on ventilator? Yes Is Patient Ambulatory and/or Out of Bed No REE-([facility]-confined to bed) 1978.304 Calculation Used for Recommendations [facility] Additional Notes Protein: 1.2-2 g/Kg ABW; 96- 160 g/day. Fluids: 1 ml/Kcal, or as per MD. Nutrition Intervention Nutrition Support: Start TF-Vital AF 1.2 Benji @ 70 ml/hr. Flush: 100 ml water Q 4 hr, or as per MD. Kcal 2,010 Protein (gm) 126 Carbohydrates (gm) 185 Fat (gm) 90 Fluid (mL) 1,358 Fiber (gm) 9 % RDI: 102% Kcal; 100% AA. Goal #1 Provide at least 75% of energy /protein needs through Enteral Feeding during LOS. Follow-Up By: 12/20/21 Additional Comments Start monitoring TF tolerance and BM. <SARATH SANTOS - Last Filed: 12/20/21 07:23> Assessment and Plan Assessment and plan: I saw and evaluated the patient. I agree with the findings and the plan of care as documented in the Nurse Practitioner's~note, with the following corrections and additions. Hospitalist Physical - Constitutional Vitals: Temp Pulse Resp BP Pulse Ox 98 F 112 H 23 149/92 95 12/19/21 08:00 12/19/21 11:51 12/19/21 11:51 12/19/21 11:51 12/19/21 11:41 HEART Score - HEART Score Troponin: Troponin T 0.020 ng/mL (0.00-0.029) 12/16/21 23:16 Results - Labs CBC & Chem 7: 12/19/21 04:05 12/19/21 04:05 Labs: Laboratory Last Values WBC 7.8 K/mm3 (4.5-11.0) 12/19/21 04:05 RBC 4.10 M/mm3 (3.65-5.03) 12/19/21 04:05 Hgb 12.0 gm/dl (11.8-15.2) 12/19/21 04:05 Hct 37.0 % (35.5-45.6) 12/19/21 04:05 MCV 90 fl (84-94) 12/19/21 04:05 MCH 29 pg (28-32) 12/19/21 04:05 MCHC 32 % (32-34) 12/19/21 04:05 RDW 15.7 % (13.2-15.2) H 12/19/21 04:05 Plt Count 209 K/mm3 (140-440) 12/19/21 04:05 Lymph % (Auto) 7.8 % (13.4-35.0) L 12/18/21 05:06 Howard % (Auto) 4.6 % (0.0-7.3) 12/18/21 05:06 Eos % (Auto) 0.6 % (0.0-4.3) 12/18/21 05:06 Baso % (Auto) 0.3 % (0.0-1.8) 12/18/21 05:06 Lymph # (Auto) 0.6 K/mm3 (1.2-5.4) L 12/18/21 05:06 Howard # (Auto) 0.4 K/mm3 (0.0-0.8) 12/18/21 05:06 Eos # (Auto) 0.0 K/mm3 (0.0-0.4) 12/18/21 05:06 Baso # (Auto) 0.0 K/mm3 (0.0-0.1) 12/18/21 05:06 Seg Neutrophils % 86.7 % (40.0-70.0) H 12/18/21 05:06 Seg Neutrophils # 7.1 K/mm3 (1.8-7.7) 12/18/21 05:06 PT 12.9 Sec. (12.2-14.9) 12/16/21 23:16 INR 0.86 (0.87-1.13) L 12/16/21 23:16 APTT 24.3 Sec. (24.2-36.6) 12/16/21 23:16 D-Dimer 869.61 ng/mlDDU (0-234) H 12/17/21 08:19 ABG pH 7.365 pH Units (7.350-7.450) 12/18/21 04:55 ABG pCO2 45.9 mm Hg 12/18/21 04:55 ABG pO2 153.6 mm Hg (80.0-90.0) H 12/18/21 04:55 ABG HCO3 25.6 mmol/L (20.0-26.0) 12/18/21 04:55 ABG O2 Saturation 98.8 % (95.0-99.0) 12/18/21 04:55 ABG O2 Content 16.0 (0.0-44) 12/18/21 04:55 ABG Base Excess 0.0 mmol/L (-2.0-3.0) 12/18/21 04:55 ABG Hemoglobin 11.5 gm/dl (14.0-18.0) L 12/18/21 04:55 ABG Carboxyhemoglobin 1.3 % (0.0-5.0) 12/18/21 04:55 ABG Methemoglobin 0.5 % (0.0-1.5) 12/18/21 04:55 Oxyhemoglobin 97.1 % (95.0-99.0) 12/18/21 04:55 FiO2 45 % 12/18/21 04:55 Sodium 139 mmol/L (137-145) 12/19/21 04:05 Potassium 4.7 mmol/L (3.6-5.0) 12/19/21 04:05 Chloride 100.2 mmol/L (98-107) 12/19/21 04:05 Carbon Dioxide 34 mmol/L (22-30) H D 12/19/21 04:05 Anion Gap 10 mmol/L 12/19/21 04:05 BUN 20 mg/dL (9-20) 12/19/21 04:05 Creatinine 1.0 mg/dL (0.8-1.3) 12/19/21 04:05 Estimated GFR > 60 ml/min 12/19/21 04:05 BUN/Creatinine Ratio 20 % 12/19/21 04:05 Glucose 94 mg/dL (75-100) 12/19/21 04:05 POC Glucose 152 mg/dL (70-105) H 12/18/21 05:02 Lactic Acid 1.30 mmol/L (0.7-2.0) 12/17/21 04:37 Calcium 8.9 mg/dL (8.4-10.2) 12/19/21 04:05 Phosphorus 2.80 mg/dL (2.5-4.5) 12/19/21 04:05 Magnesium 1.90 mg/dL (1.7-2.3) 12/19/21 04:05 Ferritin 50.3 ng/mL (30.0-300.0) 12/17/21 08:19 Total Bilirubin 0.20 mg/dL (0.1-1.2) 12/16/21 23:16 AST 31 units/L (5-40) 12/16/21 23:16 ALT 37 units/L (7-56) 12/16/21 23:16 Alkaline Phosphatase 77 units/L (35-129) 12/16/21 23:16 Ammonia 43.0 umol/L (25-60) 12/16/21 23:16 Lactate Dehydrogenase 188 units/L (91-180) H 12/17/21 08:20 Total Creatine Kinase 141 units/L (55-170) 12/16/21 23:16 Troponin T 0.020 ng/mL (0.00-0.029) 12/16/21 23:16 C-Reactive Protein 1.10 mg/dL (0.00-1.30) 12/17/21 08:20 Total Protein 6.5 g/dL (6.3-8.2) 12/16/21 23:16 Albumin 4.2 g/dL (3.9-5) 12/16/21 23:16 Albumin/Globulin Ratio 1.8 % 12/16/21 23:16 Procalcitonin 0.13 ng/mL (<0.15) 12/17/21 08:19 TSH 4.480 mlU/mL (0.270-4.200) H 12/16/21 23:16 Free T4 1.20 ng/dL (0.76-1.46) 12/17/21 Unknown Urine Color Yellow (Yellow) 12/16/21 23:29 Urine Turbidity Slightly-cloudy (Clear) 12/16/21 23:29 Urine pH 5.0 (5.0-7.0) 12/16/21 23:29 Ur Specific [place] 1.018 (1.003-1.030) 12/16/21 23:29 Urine Protein 100 mg/dl mg/dL (Negative) 12/16/21 23:29 Urine Glucose (UA) Neg mg/dL (Negative) 12/16/21 23:29 Urine Ketones Neg mg/dL (Negative) 12/16/21 23:29 Urine Blood Neg (Negative) 12/16/21 23:29 Urine Nitrite Neg (Negative) 12/16/21 23: Urine Bilirubin Neg (Negative) 12/16/21 23:29 Urine Urobilinogen < 2 mg/dL (<2.0) 12/16/21 23:29 Ur Leukocyte Esterase Neg (Negative) 12/16/21 23:29 Urine WBC (Auto) 4.0 /HPF (0.0-6.0) 12/16/21 23:29 Urine RBC (Auto) 2.0 /HPF (0.0-6.0) 12/16/21 23:29 Hyaline Casts 67 /LPF 12/16/21 23:29 Granular Casts 9 /LPF 12/16/21 23:29 Urine Mucus 1+ /HPF 12/16/21 23:29 Urine Sperm 1+ /HPF (BUDGET DIRECTOR) 12/16/21 23:29 Salicylates < 0.3 mg/dL (2.8-20.0) L 12/16/21 23:16 Urine Opiates Screen Presumptive negative 12/16/21 23:29 Urine Methadone Screen Presumptive negative 12/16/21 23:29 Acetaminophen 5.0 ug/mL (10.0-30.0) L 12/16/21 23:16 Ur Barbiturates Screen Presumptive negative 12/16/21 23:29 Ur Phencyclidine Scrn Presumptive negative 12/16/21 23:29 Ur Amphetamines Screen Presumptive positive 12/16/21 23:29 U Benzodiazepines Scrn Presumptive positive 12/16/21 23:29 Urine Cocaine Screen Presumptive negative 12/16/21 23:29 U Marijuana (THC) Screen Presumptive negative 12/16/21 23:29 Drugs of Abuse Note Disclamer 12/16/21 23:29 Plasma/Serum Alcohol < 0.01 % (0-0.07) 12/16/21 23:16 Coronavirus (PCR) Positive (Negative) A 12/17/21 08:30 Microbiology: Microbiology 12/17/21 00:10 Peripheral/Venous Blood Culture - Preliminary NO GROWTH AFTER 72 HOURS 12/17/21 00:16 Peripheral/Venous Blood Culture - Preliminary NO GROWTH AFTER 72 HOURS Warren/IV: Voiding Method Condom Catheter Nutrition/Malnutrition Assess - Dietary Evaluation Nutrition/Malnutrition Findings: Nutrition Notes Start: 12/17/21 08:30 Freq: Status: Discharge Protocol: Document 12/17/21 16:15 TERRY (Rec: 12/17/21 16:41 TERRY [id number]) Nutrition Notes Initial or Follow up Assessment Current Diagnosis COPD,Respiratory Failure Other Pertinent Diagnosis s/p Falls, Substance Abuse, r/ o Pneumonia, Metabolic Encephalopathy, Dehydr Current Diet TF-Vital AF 1.2 Benji @ 70 ml/hr (from B 12/18). Labs/Tests 12/17: BUN 25, Ca 8.2. Pertinent Medications 12/17: Nutritionally unremarkable. Height 6 ft Weight 79.742 kg [place] Body Weight (kg) 80.90 BMI 23.8 Weight change and time frame None provided at admission. Weight Status Appropriate Subjective/Other Information RD consult for write/manage TF assessment. Pt currently on NPO since admission. I will prescribe TF to provide Pt with energy/protein needs during LOS. Pt intubated on the ER 12/16, according to History & Physical notes. Pt is on Mechanical Ventilation , O 2 saturation @ 98%, according to Physical Assessment History notes. Pt has missing teeth, according to Physical Assessment History notes. Pt shows an unspecified area of concern for skin risk at the time, according to Physical Assessment History notes. Percent of energy/protein needs met: Prescribed TF-Vital AF 1.2 Benji @ 70 ml/hr provides for energy/protein needs (2,010 Kcal/136 g) during LOS, 102% Kcal; 100% AA. Burn Absent Trauma Absent GI Symptoms None Food Allergy No Skin Integrity/Comment Unspecified area of concern. Current % PO Other #1 Nutrition Diagnosis Inadequate oral intake Etiology Pt is on Mechanical Ventilation. As Evidenced by Signs and Symptoms Pt currently on NPO. Is patient on ventilator? Yes Is Patient Ambulatory and/or Out of Bed No REE-([facility]-confined to bed) 1979.304 Calculation Used for Recommendations [facility] Additional Notes Protein: 1.2-2 g/Kg ABW; 96- 160 g/day. Fluids: 1 ml/Kcal, or as per MD. Nutrition Intervention Nutrition Support: Start TF-Vital AF 1.2 Benji @ 70 ml/hr. Flush: 100 ml water Q 4 hr, or as per MD. Kcal 2,010 Protein (gm) 126 Carbohydrates (gm) 185 Fat (gm) 90 Fluid (mL) 1,358 Fiber (gm) 9 % RDI: 102% Kcal; 100% AA. Goal #1 Provide at least 75% of energy /protein needs through Enteral Feeding during LOS. Follow-Up By: 12/20/21 Additional Comments Start monitoring TF tolerance and BM.
--- NOTE | 2021-12-19 12:06 | Progress Note ---
Assessment and Plan Acute and chronic hypoxemic respiratory failure s/p MVS Acute Toxic and Metabolic Encephalopathy Polysubstance Abuse (UDS positive) Multiple Falls at Home Severe COPD (on Noctural Oxygen at Home, 2L NC) Recurrent Pneumonia LLL Pneumonia Acute Kidney Injury (FEROZ) most likely Vasomotor Nephropathy Hyperkalemia COVID positive - COVID-19 Rx per ID recommendations - empiric isolation - prn supplemental oxygen to keep O2 sats > 90% - prn bronchodilators (ISABEL & LABA) with pulm hygiene per RT - add inhaled corticosteroids - avoid nephrotoxins, renally dose all medications - mobility protocols to prevent pressure ulcers - PT/OT as tolerated - Wound care per RN/WCT - continue accuchecks with glycemic control per SSI for target blood glucose < 180 mg/dL - tobacco abstinence strongly counseled at the bedside - home oxygen evaluation at discharge - GI & VTE prophylaxis - Flu & pneumovax per protocol - prn analgesia per pain score - continue other care per attending / other consultants - discharge planning ongoing concurrently .... transfer to medical floor ... re-evaluate in am & prn Subjective Date of service: 12/19/21 Principal diagnosis: Ac and ch hypoxemic resp failure s/p MVS; AMS; COPD; PNA; FEROZ; COVID +ve Interval history: Patient is seen today for: Acute and chronic hypoxemic respiratory failure s/p MVS; AMS; Polysubstance Abuse; Severe COPD; Recurrent Pneumonia; FEROZ; COVID positive Seen and examined at bedside; 24hour events reviewed; nursing and respiratory care staff consulted; no adverse overnight events reported to me; restring in bed; doing well post extubation yesterday; no N/V/F/C Objective Vital Signs - 12hr 12/19/21 12/19/21 12/19/21 00:11 00:21 00:31 Pulse Rate 108 H 102 H 103 H Respiratory 21 25 H 26 H Rate Blood Pressure 119/60 119/60 119/60 O2 Sat by Pulse 94 95 95 Oximetry 12/19/21 12/19/21 12/19/21 00:41 00:51 01:00 Pulse Rate 105 H 101 H 97 H Respiratory 23 21 23 Rate Blood Pressure 119/60 119/60 122/68 O2 Sat by Pulse 95 95 92 Oximetry 12/19/21 12/19/21 12/19/21 01:11 01:21 01:31 Pulse Rate 101 H 102 H 101 H Respiratory 23 20 26 H Rate Blood Pressure 122/68 122/68 122/68 O2 Sat by Pulse 96 96 95 Oximetry 12/19/21 12/19/21 12/19/21 01:41 01:51 02:00 Pulse Rate 97 H 98 H 99 H Respiratory 25 H 23 14 Rate Blood Pressure 122/68 122/68 123/73 O2 Sat by Pulse 96 96 89 Oximetry 12/19/21 12/19/21 12/19/21 02:11 02:21 02:31 Pulse Rate 100 H 82 67 Respiratory 25 H 20 25 H Rate Blood Pressure 123/73 123/73 123/73 O2 Sat by Pulse 95 94 94 Oximetry 12/19/21 12/19/21 12/19/21 02:41 02:51 03:00 Pulse Rate 93 H 95 H 93 H Respiratory 23 22 20 Rate Blood Pressure 123/73 123/73 127/73 O2 Sat by Pulse 95 95 92 Oximetry 12/19/21 12/19/21 12/19/21 03:11 03:21 03:31 Pulse Rate 96 H 98 H 96 H Respiratory 19 21 21 Rate Blood Pressure 127/73 127/73 127/73 O2 Sat by Pulse 96 94 95 Oximetry 12/19/21 12/19/21 12/19/21 03:41 03:51 04:00 Pulse Rate 93 H 93 H 82 Respiratory 20 24 19 Rate Blood Pressure 127/73 127/73 122/74 O2 Sat by Pulse 95 96 94 Oximetry 12/19/21 12/19/21 12/19/21 04:11 04:21 04:31 Pulse Rate 93 H 81 94 H Respiratory 23 21 22 Rate Blood Pressure 122/74 122/74 122/74 O2 Sat by Pulse 96 95 95 Oximetry 12/19/21 12/19/21 12/19/21 04:41 04:51 05:00 Pulse Rate 94 H 90 79 Respiratory 22 18 20 Rate Blood Pressure 122/74 122/74 128/76 O2 Sat by Pulse 94 95 93 Oximetry 12/19/21 12/19/21 12/19/21 05:11 05:21 05:31 Pulse Rate 102 H 95 H 78 Respiratory 20 22 19 Rate Blood Pressure 128/76 128/76 128/76 O2 Sat by Pulse 93 96 96 Oximetry 12/19/21 12/19/21 12/19/21 05:41 05:51 06:00 Pulse Rate 94 H 85 76 Respiratory 20 22 18 Rate Blood Pressure 128/76 128/76 134/76 O2 Sat by Pulse 97 95 94 Oximetry Constitutional: no acute distress, alert Eyes: non-icteric ENT: oropharynx moist Neck: supple Effort: normal Ascultation: Bilateral: clear, diminished breath sounds Percussion: Bilateral: not dull Cardiovascular: regular rate and rhythm, other (S1,S2) Gastrointestinal: normoactive bowel sounds, soft, non-tender, non-distended Integumentary: normal Extremities: no cyanosis, no edema, other (tatooed) Neurologic: normal mental status, non-focal exam, pupils equal and round, motor strength normal and Psychiatric: mood appropriate, affect normal CBC and BMP: 12/19/21 04:05 12/19/21 04:05 ABG, PT/INR, D-dimer: ABG ABG pH 7.365 pH Units (7.350-7.450) 12/18/21 04:55 ABG pCO2 45.9 mm Hg 12/18/21 04:55 ABG pO2 153.6 mm Hg (80.0-90.0) H 12/18/21 04:55 ABG O2 Saturation 98.8 % (95.0-99.0) 12/18/21 04:55 PT/INR, D-dimer PT 12.9 Sec. (12.2-14.9) 12/16/21 23:16 INR 0.86 (0.87-1.13) L 12/16/21 23:16 D-Dimer 869.61 ng/mlDDU (0-234) H 12/17/21 08:19 Abnormal lab findings: Abnormal Labs 12/16/21 12/16/21 12/16/21 23:16 23:16 23:16 Hgb Hct RDW 16.3 H Lymph % (Auto) 5.7 L Lymph # (Auto) 0.5 L Seg Neutrophils % 86.6 H Seg Neutrophils # 8.2 H INR 0.86 L D-Dimer ABG pH ABG pO2 ABG HCO3 ABG O2 Saturation ABG Hemoglobin Potassium 5.4 H Chloride 97.2 L Carbon Dioxide BUN 29 H Creatinine 1.6 H Glucose 186 H POC Glucose Calcium Lactate Dehydrogenase TSH Salicylates Acetaminophen Coronavirus (PCR) 12/16/21 12/16/21 12/16/21 23:16 23:16 23:16 Hgb Hct RDW Lymph % (Auto) Lymph # (Auto) Seg Neutrophils % Seg Neutrophils # INR D-Dimer ABG pH ABG pO2 ABG HCO3 ABG O2 Saturation ABG Hemoglobin Potassium Chloride Carbon Dioxide BUN Creatinine Glucose POC Glucose Calcium Lactate Dehydrogenase TSH 4.480 H Salicylates < 0.3 L Acetaminophen 5.0 L Coronavirus (PCR) 12/17/21 12/17/21 12/17/21 01:25 08:19 08:20 Hgb Hct RDW Lymph % (Auto) Lymph # (Auto) Seg Neutrophils % Seg Neutrophils # INR D-Dimer 869.61 H ABG pH 7.332 L ABG pO2 195.4 H ABG HCO3 29.8 H ABG O2 Saturation 99.2 H ABG Hemoglobin 11.6 L Potassium Chloride Carbon Dioxide BUN 25 H Creatinine Glucose POC Glucose Calcium 8.2 L Lactate Dehydrogenase 188 H TSH Salicylates Acetaminophen Coronavirus (PCR) 12/17/21 12/18/21 12/18/21 08:30 04:55 05:02 Hgb Hct RDW Lymph % (Auto) Lymph # (Auto) Seg Neutrophils % Seg Neutrophils # INR D-Dimer ABG pH ABG pO2 153.6 H ABG HCO3 ABG O2 Saturation ABG Hemoglobin 11.5 L Potassium Chloride Carbon Dioxide BUN Creatinine Glucose POC Glucose 152 H Calcium Lactate Dehydrogenase TSH Salicylates Acetaminophen Coronavirus (PCR) Positive A 12/18/21 12/18/21 12/19/21 05:06 05:06 04:05 Hgb 11.6 L Hct 35.1 L D RDW 15.6 H 15.7 H Lymph % (Auto) 7.8 L Lymph # (Auto) 0.6 L Seg Neutrophils % 86.7 H Seg Neutrophils # INR D-Dimer ABG pH ABG pO2 ABG HCO3 ABG O2 Saturation ABG Hemoglobin Potassium Chloride Carbon Dioxide BUN 27 H Creatinine Glucose 124 H POC Glucose Calcium Lactate Dehydrogenase TSH Salicylates Acetaminophen Coronavirus (PCR) 12/19/21 04:05 Hgb Hct RDW Lymph % (Auto) Lymph # (Auto) Seg Neutrophils % Seg Neutrophils # INR D-Dimer ABG pH ABG pO2 ABG HCO3 ABG O2 Saturation ABG Hemoglobin Potassium Chloride Carbon Dioxide 34 H D BUN Creatinine Glucose POC Glucose Calcium Lactate Dehydrogenase TSH Salicylates Acetaminophen Coronavirus (PCR) Allied health notes reviewed: nursing
[2021-12-19 14:23] VITALS: BP 149/92
--- NOTE | 2021-12-20 12:40 | Electrocardiograph Report ---
[facility] Test Date: 2021-12-16 Test Time: 23:14:14 Pat Name: YANETH ADAMS Department: Room: A262 1 Gender: M Musical Performer: KENISHA : 1960 Requested By: BOBY MCLAUGHLIN Order Number: [id number] Reading MD: Randy Matos Measurements Intervals [place] Rate: 108 P: 82 MO: 129 QRS: 35 QRSD: 129 T: 55 QT: 363 QTc: 487 Interpretive Statements Sinus tachycardia Right bundle branch block ST elevation, consider lateral injury No previous ECG available for comparison Electronically Signed On 12-20-2021 9:40:26 PDT by Randy Matos
== END 2021-12-19 12:00 | disposition left against medical advice (07) | DRG 208 ==
LOC: ED 22:54 → CC1 12-17 01:17
PROVIDERS: ADMIT Internal Medicine Geriatric Medicine; ATTEND Internal Medicine
PROC: 5A1945Z Respiratory Ventilation, 24-96 Consecutive Hours (ICD-10-PCS; principal; 2021-12-16)
PROC: 0BH17EZ Insertion of Endotracheal Airway into Trachea, Via Natural or Artificial Opening (ICD-10-PCS; 2021-12-16)
PROC: 3E0234Z Introduction of Serum, Toxoid and Vaccine into Muscle, Percutaneous Approach (ICD-10-PCS; 2021-12-16)
PROC: 4A033R1 Measurement of Arterial Saturation, Peripheral, Percutaneous Approach (ICD-10-PCS; 2021-12-18)
DX: U07.1 COVID-19 (principal); J96.21 Acute and chronic respiratory failure with hypoxia; N17.0 Acute kidney failure with tubular necrosis; G92.8 Other toxic encephalopathy; J18.9 Pneumonia, unspecified organism; F19.10 Other psychoactive substance abuse, uncomplicated; E86.0 Dehydration; E03.9 Hypothyroidism, unspecified; E87.5 Hyperkalemia; J44.9 Chronic obstructive pulmonary disease, unspecified; F41.9 Anxiety disorder, unspecified
CPT/HCPCS: 36415; 36600; 70450; 71045; 72125; 72170; 74018; 80048; 80053; 80307; 80320; 81001; 82140; 82550; 82728; 82803; 82962; 83615; 83735; 84100; 84145; 84439; 84443; 84484; 85025; 85027; 85379; 85610; 85730; 86140; 87040; 87070; 87205; 93005; 94002; 94003; 94760; 96374; 96375; 99291; G0378; J3490; G0480; J0456; J0696; J1100; J1644; J1940; J2250; J3010; J7030; U0003